=== PATIENT | male | born 1955 | race Caucasian/White ===

== ENCOUNTER 2017-06-06 19:53 | Inpatient (IN) | payer OTHER ==
[~2017-06-06] VITALS: Ht 188 cm; Wt 163.7 kg
[~2017-06-06 19:53] MED LIST: AMARYL2 MG PO; ASPIR 8181 MG PO; CARDIZEM CD240 MG PO; CARVEDILOL12.5 MG PO; DEMADEX20 MG PO; GEMFIBROZIL 60600 MG PO; GLUCOPHAGE1000 MG PO; HYDROCHLOROTH12.5 M2 PO; KEFLEX500 MG PO; KLOR-CON 1010 MEQ PO; LASIX 40 MG TAB40 M2 PO; LEVAQUIN 500 M500 M2 PO; LISINOPRIL10 MG PO; LISINOPRIL5 MG PO; MAGNEBIND 4001 EACH PO; METOLAZONE 5 MG5 MG PO; NEURONTIN 300300 M1 PO; NORCO 5-325 TA1 EACH PO; OMEPRAZOLE 20 M20 M1 PO; OXYCODONE HCL 55 MG PO; PRAVACHOL40 MG PO; PREDNISONE 10 M10 MG PO; SULINDAC 200MG200 M1 PO; TRADJENTA5 MG PO; TYLENOL325 MG PO; VENTOLIN HFA 1818 GM INH; VITAMINC500 PO; XARELTO20 MG PO
[2017-06-06 20:00] VITALS: BP 64/30
[2017-06-06 20:13] LABS: ABSOLUTE BASOPHILS 0.1 thou/uL (0.0-0.2); ABSOLUTE EOSINOPHILS 0.1 thou/uL (0.0-0.7); ABSOLUTE LYMPHOCYTES 2.3 thou/uL (0.8-5.3); ABSOLUTE MONOCYTES 1.2 thou/uL (0.0-1.2); ABSOLUTE NEUTROPHILS 9.3 thou/uL (1.6-8.1); BASOPHILS 0.9 %; HEMATOCRIT 45.1 % (42.0-52.0); HEMOGLOBIN 15.2 gm/dL (14.0-18.0); LYMPHOCYTES 17.7 %; MCH 29.9 pg (26.0-34.0); MCHC 33.8 g/dL (28.0-37.0); MCV 88.6 fL (80.0-100.0); MONOCYTES 9.1 %; NUCLEATED RBCS 0 /100WBC; PLATELET COUNT* 439 thou/uL (150-400); POLYS 71.3 %; RBC 5.09 mil/uL (4.50-6.00); RDW-CV 15.2 % (10.5-14.5)
[2017-06-06 20:29] LABS: INR 1.1; PROTIME 11.1 Seconds (9.20-11.50)
[2017-06-06 20:32] LABS: ANION GAP 11 mmol/L (7-16); BUN 43 mg/dL (7-18); CHLORIDE 87 mmol/L (98-107); CO2 26 mmol/L (21-32); CREATININE 2.1 mg/dL (0.6-1.3); GLUCOSE 298 mg/dL (70-99); POTASSIUM 3.9 mmol/L (3.5-5.1); SODIUM 124 mmol/L (136-145)
[2017-06-06 20:43] LABS: ALBUMIN 3.1 g/dL (3.4-5.0); ALKALINE PHOSPHATASE 138 U/L (46-116); NT-PRO BRAIN NAT PEPTIDE 725 pg/mL (<300); SGOT 29 U/L (15-37); SGPT 24 U/L (30-65); TOTAL BILIRUBIN 0.4 mg/dL (<0.1-1.0); TROPONIN-I LEVEL <0.06 ng/mL (<0.06)
[2017-06-06 23:30] VITALS: BP 96/57
[2017-06-06] MEDS ORDERED: TOPROL XL100 MG PO (23:31)
[2017-06-06] MEDS ORDERED: TRAMADOL 50 MG50 MG PO (23:31)
[2017-06-06] MEDS ORDERED: HYDROCHLOROTH12.5 M1 PO (23:31)
[2017-06-06] MEDS ORDERED: AMBIEN 5 MG TABL5 M1 PO (23:32)
[2017-06-06] MEDS ORDERED: ALLER-EASE180 MG PO (23:32)
[2017-06-06] MEDS ORDERED: VASOTEC20 MG PO (23:33)
[2017-06-06] MEDS ORDERED: MAGOX 400400 MG PO (23:34)
[2017-06-06] MEDS ORDERED: GLUCOPHAGE XR500 MG PO (23:34)
[2017-06-06] MEDS ORDERED: OSTEO BI-FLEX1 EAC1 PO (23:35)
[2017-06-07] VITALS (28 sets, daily range): BP systolic 60–143; BP diastolic 30–83
[2017-06-07] MEDS ORDERED: KLOR-CON 1010 MEQ PO (03:29)
[2017-06-07] MEDS ORDERED: DEMADEX20 MG PO (03:29)
[2017-06-07] MEDS ORDERED: ZAROXOLYN 5MG TA5 MG PO (03:30)
[2017-06-07] MEDS ORDERED: NEURONTIN 300300 M1 PO (03:31)
[2017-06-07] MEDS ORDERED: CELEBREX 200 M200 M1 PO (03:31)
[2017-06-07] MEDS ORDERED: CARDIZEM CD240 MG PO (03:33)
[2017-06-07] MEDS ORDERED: JARDIANCE10 MG PO (03:33)
[2017-06-07] MEDS ORDERED: OXYCODONE HCL 55 MG PO (03:34)
[2017-06-07 04:32] LABS: HEMATOCRIT 53.4 % (42.0-52.0); MCHC 32.3 g/dL (28.0-37.0); MCV 89.6 fL (80.0-100.0); MPV 8.7 fl. (7.2-11.1); NUCLEATED RBCS 0 /100WBC; RBC 5.97 mil/uL (4.50-6.00); RDW-CV 15.6 % (10.5-14.5)
[2017-06-07 04:47] LABS: ALBUMIN 2.6 g/dL (3.4-5.0); CALCIUM 7.7 mg/dL (8.5-10.1); CREATININE 2.4 mg/dL (0.6-1.3); MAGNESIUM 1.7 mg/dL (1.8-2.4); PHOSPHORUS* 5.5 mg/dL (2.5-4.9); POTASSIUM 4.7 mmol/L (3.5-5.1); TOTAL BILIRUBIN 0.4 mg/dL (<0.1-1.0)
[2017-06-07 05:21] LABS: HEMOGLOBIN 17.3 gm/dL (14.0-18.0); PLATELET COUNT* 517 thou/uL (150-400); WBC 45.1 thou/uL (4.0-11.0)
[2017-06-07 06:42] LABS: ABSOLUTE LYMPHOCYTES 0.9 thou/uL (0.8-5.3); ABSOLUTE MONOCYTES 1.4 thou/uL (0.0-1.2); ABSOLUTE NEUTROPHILS 42.8 thou/uL (1.6-8.1); METAMYELOCYTES 1 %; PLATELET ESTIMATE INCREASED
[2017-06-07 06:50] LABS: BE -9.5 mmol/L (-2 to +3); PCO2 39.6 mmHg (35.0-45.0)
[2017-06-07 06:51] LABS: pH 7.251 (7.340-7.450)
[2017-06-07 06:52] LABS: PO2 149.7 mmHg (75.0-100.0)
--- NOTE | 2017-06-07 10:13 | EKG ---
[place] [address] ELECTROCARDIOGRAM REPORT Name: VALORIE NAVA Room: [address] ADM IN .R.#: [id number] Admission: 06/06/17 Attend Phys: Maco Flor MD Discharge: Date of : 55 Report #: [id number] THIS REPORT FOR: //name// [facility] ED Test Date: 2017-06-06 Test Time: 19:56:34 Pat Name: VALORIE NAVA Department: Room: [address] Gender: M Reheater: 99 : 1955 Requested By: Sanjuana Herzog Order Number: [id number] Carlitos MD: Reagan Gaming Measurements Intervals [place] Rate: 99 P: [place]: QRS: 77 QRSD: 119 T: 137 QT: 394 QTc: 506 Interpretive Statements Atrial fibrillation Inferior infarct, old Prolonged QT interval Compared to ECG 01/25/2017 16:00:10 Prolonged QT interval now present Electronically Signed On 06-07-2017 10:13:37 DISPLAY ARTIST by Reagan Gaming [email or web address] <ELECTRONICALLY SIGNED> By: Reagan Gaming MD, [facility] 01/3 55 55 Reagan Gaming MD, FAC /EPI
--- NOTE | 2017-06-07 10:21 | EKG ---
[place] [address] ELECTROCARDIOGRAM REPORT Name: VALORIE NAVA Room: [address] ADM IN .R.#: [id number] Admission: 06/06/17 Attend Phys: Maco Flor MD Discharge: Date of : 55 Report #: [id number] THIS REPORT FOR: //name// [facility] ED Test Date: 2017-06-06 Test Time: 22:33:32 Pat Name: VALORIE NAVA Department: Room: [facility] Gender: M Geophysical Computer: [facility] : 1955 Requested By: Sanjuana Herzog Order Number: [id number] MD: Reagan Gaming Measurements Intervals [place] Rate: 142 P: [place]: QRS: 95 QRSD: 130 T: 268 QT: 316 QTc: 486 Interpretive Statements Atrial fibrillation with pvc's Nonspecific intraventricular conduction delay Nonspecific repol abnormality, diffuse leads Electronically Signed On 06-07-2017 10:20:58 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
[2017-06-07 10:36] LABS: INFLUENZA A ANTIGEN None Detected (None Detect); INFLUENZA B ANTIGEN None Detected (None Detect)
[2017-06-07 15:44] LABS: CALCIUM 7.3 mg/dL (8.5-10.1); CREATININE 2.1 mg/dL (0.6-1.3)
[2017-06-07 15:54] LABS: BE -3.8 mmol/L (-2 to +3); HCO3 23.2 mmol/L (22.0-26.0); PCO2 VENOUS 48.7 mmHg (41.0-51.0)
[2017-06-07 15:57] LABS: POTASSIUM 4.2 mmol/L (3.5-5.1)
[2017-06-07 19:52] LABS: URINE BILIRUBIN NEGATIVE (Negative); URINE BLOOD 1+ (Negative); URINE CLARITY CLEAR; URINE COLOR YELLOW; URINE GLUCOSE-RANDOM 3+ (Negative); URINE KETONES NEGATIVE (Negative); URINE LEUKOCYTES-REFLEX NEGATIVE (Negative); URINE NITRITE-REFLEX NEGATIVE (Negative); URINE PROTEIN NEGATIVE (Negative); URINE UROBILINOGEN 0.2 E.U./dl (0.2-1.0)
[2017-06-07 20:01] LABS: CASTS None Seen /LPF (None Seen); CRYSTALS None Seen /LPF (None Seen); MUCUS None Seen strn/LPF (None Seen); SQUAMOUS NONE SEEN /LPF (0-3)
[2017-06-07 20:03] LABS: BACTERIA-REFLEX 1-9 Few /HPF (None Seen); URINE RBC 3-10 Few /HPF (0-2); URINE WBC-REFLEX None Seen /HPF (0-5)
[2017-06-08] VITALS (25 sets, daily range): BP systolic 95–1128; BP diastolic 50–78
[2017-06-08 05:19] LABS: BASOPHILS 0.1 %; HEMATOCRIT 41.2 % (42.0-52.0); LYMPHOCYTES 3.6 %; MCH 29.1 pg (26.0-34.0); MCHC 32.7 g/dL (28.0-37.0); MCV 89.1 fL (80.0-100.0); MONOCYTES 3.5 %; MPV 8.2 fl. (7.2-11.1); NUCLEATED RBCS 0 /100WBC; POLYS 92.8 %; RBC 4.63 mil/uL (4.50-6.00); RDW-CV 15.4 % (10.5-14.5)
[2017-06-08 05:28] LABS: BE 2.5 mmol/L (-2 to +3); HCO3 27.3 mmol/L (22.0-26.0); PO2 84.7 mmHg (75.0-100.0); pH 7.421 (7.340-7.450)
[2017-06-08 05:30] LABS: PREALBUMIN 17.1 mg/dL (18.0-35.7)
[2017-06-08 05:58] LABS: ALBUMIN 2.3 g/dL (3.4-5.0); CALCIUM 7.7 mg/dL (8.5-10.1); CREATININE 1.4 mg/dL (0.6-1.3); MAGNESIUM 2.2 mg/dL (1.8-2.4); POTASSIUM 3.8 mmol/L (3.5-5.1); TOTAL BILIRUBIN 0.4 mg/dL (<0.1-1.0); TOTAL PROTEIN 6.4 g/dL (6.4-8.2)
[2017-06-08 06:00] LABS: ABSOLUTE LYMPHOCYTES 0.9 thou/uL (0.8-5.3); ABSOLUTE MONOCYTES 0.9 thou/uL (0.0-1.2); ABSOLUTE NEUTROPHILS 22.6 thou/uL (1.6-8.1); HEMOGLOBIN 13.5 gm/dL (14.0-18.0); WBC 24.3 thou/uL (4.0-11.0)
[2017-06-08 06:01] LABS: PLATELET COUNT* 330 thou/uL (150-400)
--- NOTE | 2017-06-08 11:02 | CON ---
[address] [address] CONSULTATION Name: VALORIE NAVA Room: [address] IN M.R.#: [id number] Admission: 06/06/17 Attend Phys: Maco Flor MD Discharge: Date of : 55 Report #: [id number] THIS REPORT FOR: //name// CC: Maco Flor FAM physician/PCP DATE OF SERVICE: 06/07/2017 INFECTIOUS DISEASE CONSULTATION ATTENDING PHYSICIAN: Maco Flor M.D. REASON FOR EVALUATION: Septic shock, left-sided pneumonitis. HISTORY OF PRESENT ILLNESS: Chart reviewed, patient examined. This is a 62-year-old male with diabetes mellitus with whom I am familiar with dating back to hospitalization on 01/2017. At that time, had bilateral lower extremity inflammatory eruptions with probably component of cellulitis. He does have lymphedema as well. He was doing fairly well. On the day of admission, he presented to his business education teacher's office, was found to have some hypotension. He was discharged. As he got home, he became weak and lightheaded. When he woke up, he was feeling worse with difficulty nausea, dry heaving. He was dyspneic as well. Of note, poorly had a sinus infection 2 weeks ago per son, which is not atypical for him. He has not had abdominal pain. It is unclear whether he has had fevers. On evaluation, he was critically ill, emergently intubated, now on ventilatory support. Blood cultures in progress, thus far sterile. Chest CT was done and it showed a severe left-sided back pain, rule out dissection. He was found to have consolidative process in the base of the left lung. It is not particularly evident on chest x-ray. He has had some low-grade fevers. Started empirically on antimicrobials including piperacillin, tazobactam as well as vancomycin and Levaquin. ALLERGIES: TYLENOL. CURRENT MEDICATIONS: Include levofloxacin, vancomycin, methylprednisolone, ipratropium and albuterol inhaler. PAST MEDICAL HISTORY: In addition to diabetes mellitus type 2, has high cholesterol, has known vasculopathy, coronary artery disease with aortocoronary bypass grafting, hypertension. SOCIAL HISTORY: He smokes a pack a day, 44 pack years. No illicit drug use. Occasional ethanol. FAMILY HISTORY: [place] [address] CONSULTATION Name: VALORIE NAVA Room: [address]#: [id number] Admission: 06/06/17 Attend Phys: Maco Flor MD Discharge: Date of : 55 Report #: [id number] REVIEW OF SYSTEMS: Not obtainable. PHYSICAL EXAMINATION: GENERAL: Appears somewhat chronically ill. He is supine, maintained on the vent, sedated. VITAL SIGNS: Temperature 100.6, pulse 135, respirations 22, blood pressures 93/61. SKIN: Warm, dry, no rashes. HEENT: Unremarkable. NECK: Supple. LUNGS: Diminished breath sounds, had some crackles at the bases. HEART: Regular, tachycardic. I cannot appreciate murmur, although I cannot exclude one necessarily given his tachycardia. ABDOMEN: There are no evident peritoneal signs, seems to be soft. GENITOURINARY AND RECTAL: Deferred. LABORATORY DATA: Blood cultures sterile thus far. Chest x-ray, though it shows clear lungs, ____ was done; however, showed no evidence of aortic dissection, left lower lobe consolidative process. Does have some changes on his lungs that appear to be chronic. There is question of cirrhosis, unchanged several months ago. Lactic acid 5.8, it is actually up from admission 4.3. Troponin level of 1.29. CBC: White count of 45.1, it is up from 13.0. Hemoglobin 17.3, hematocrit 53.4, platelets of 517. Electrolytes: Sodium 126, potassium 4.7, chloride 91, bicarbonate is 22. BUN and creatinine 43 and 2.4. Glucose of 494. AST of 60, ALT of 39. Albumin of 2.6. Total protein of 7.0. Estimated GFR of 28. ASSESSMENT AND PLAN: Septic shock, certainly appears to have pneumonia as well, I cannot really exclude a second infection. He is critically ill. At some point, I think we need to evaluate his abdomen given the markedly elevated white count with certainly raised suspicion perhaps of an ischemic episode. We will continue the piperacillin and tazobactam, go and check influenza and empirically start Tamiflu. We will await results, ____ urinary antigens, MRSA, PCR as well. <ELECTRONICALLY SIGNED> By: Ronan Tipton MD 06/08/17 1102 1010 55Josamantha Tipton MD /nt
[2017-06-08 22:42] LABS: BE 1.7 mmol/L (-2 to +3); PCO2 39.6 mmHg (35.0-45.0); PO2 94.5 mmHg (75.0-100.0); pH 7.435 (7.340-7.450)
[2017-06-09] VITALS (9 sets, daily range): BP systolic 116–147; BP diastolic 57–78
[2017-06-09 03:21] LABS: HEMATOCRIT 35.5 % (42.0-52.0); HEMOGLOBIN 11.7 gm/dL (14.0-18.0); MCH 29.6 pg (26.0-34.0); MCHC 33.1 g/dL (28.0-37.0); MCV 89.5 fL (80.0-100.0); MPV 7.9 fl. (7.2-11.1); RBC 3.97 mil/uL (4.50-6.00); RDW-CV 15.7 % (10.5-14.5); WBC 18.8 thou/uL (4.0-11.0)
[2017-06-09 03:31] LABS: ALBUMIN 2.4 g/dL (3.4-5.0); CALCIUM 7.7 mg/dL (8.5-10.1); CREATININE 1.3 mg/dL (0.6-1.3); MAGNESIUM 2.2 mg/dL (1.8-2.4); POTASSIUM 3.5 mmol/L (3.5-5.1); TOTAL BILIRUBIN 0.3 mg/dL (<0.1-1.0); TOTAL PROTEIN 6.3 g/dL (6.4-8.2)
--- NOTE | 2017-06-09 09:31 | CON ---
[facility] [address] [place] [address] CONSULTATION Name: VALORIE NAVA Room: [address] IN M.R.#: [id number] Admission: 06/06/17 Attend Phys: Maco Flor MD Discharge: Date of : 55 Report #: [id number] THIS REPORT FOR: //name// CC: Maco Flor [facility] physician/PCP REASON FOR THE CONSULT: Acute respiratory failure. HISTORY OF PRESENT ILLNESS: The patient is a 62-year-old male patient who is a smoker and carries a diagnosis of COPD, who was intubated at the time of my evaluation, did not participate in the history. The patient had previous history of CABG. Yesterday, he saw his surveying crew rodman and everything was fine. When he went home, he started having dizziness, weakness and fatigue and eventually the family called the EMS. Initially, he had no shortness of breath, but upon arrival to the ER, he was in respiratory distress, he was extremely hypotensive, he was intubated and had the central line placed, start on vasopressors. Actually at the time of my evaluation, he was on dopamine and Levophed. He was sedated by Versed too and he was getting IV fluids. His blood pressure was running around 110 systolic. He was found to have pneumonia. His family members at the bedside did not notice any symptoms of sputum production, cough or shortness of breath prior to acute deterioration, although he had some sinus symptoms in the last few days. HOME MEDICATIONS: He is on tramadol, hydrochlorothiazide, Ambien, metformin, furosemide, metolazone, gabapentin, diazepam, aspirin, gemfibrozil, pravastatin. He was on Xarelto and Tylenol. PAST MEDICAL HISTORY: Coronary artery disease status post CABG, hyperlipidemia, diabetes mellitus, COPD, smoker, hypertension. PAST SURGICAL HISTORY: Include bypass surgery. FAMILY HISTORY: Positive for heart disease. SOCIAL HISTORY: He continues to smoke 1 pack of cigarettes per day for the last 44 years. Apparently does not drink alcohol excessively. REVIEW OF SYSTEMS: The patient is intubated and sedated. Review of systems is unobtainable at this point. ALLERGIES: TYLENOL NO. 3. PHYSICAL EXAMINATION: VITAL SIGNS: On examination, he is on 2 vasopressors, blood pressure 106/66, O2 saturation on the monitor 99%, he was in 50% when I saw him, pulse rate around 111, he was afebrile with temperature 38.1. [place] [address] CONSULTATION Name: VALORIE NAVA Room: [address]#: [id number] Admission: 06/06/17 Attend Phys: Maco Flor MD Discharge: Date of : 55 Report #: [id number] GENERAL: Overweight gentleman, sedated on the vent, although he opened his eyes when stimulated, overall looking comfortable. HEENT: Head: Normocephalic, atraumatic. Pupils are equal, reactive to light. Extraocular muscle movements are intact. External ear looks healthy and normal. Nasal passage is patent. Oral cavity: Moist mucous membrane. He has ET tube and NG tube in place. NECK: Supple. No palpable lymph node. No palpable thyroid. Trachea is central. CHEST: Diminished air movement bilaterally. No definite wheezes. Some crackles at the bases bilaterally. No deformities of the chest on inspection. No tenderness. HEART: S1, S2 in AFib. ABDOMEN: Benign, soft, lax, nontender, obese. LOWER EXTREMITY: Trace edema noted. No calf tenderness. MUSCULOSKELETAL: No deformities. No contractures, normal inspection. LYMPHATICS: No palpable lymph nodes. PSYCHIATRIC: Mood and affect could not be evaluated. NEUROLOGIC: Although he is sedated, but when stimulated, movements of the 4 extremities were noted. DIAGNOSTIC DATA: He had multiple chest x-rays during this hospitalization showing left-sided infiltrates. Tubes in good position. He had a CT of the abdomen, pelvis and chest showed left lower lobe consolidation. His white blood count today is 45,000 with hemoglobin 17.3 and platelets of 517. ABGs 7.25/39/149. INR of 28. His creatinine is 2.4 today. IMPRESSION: 1. Acute hypoxic respiratory failure. 2. Chronic obstructive pulmonary disease. 3. Pneumonia. 4. Septic shock. 5. Acute renal failure. 6. Encephalopathy. 7. Lactic acidosis. 8. Abnormal liver test. 9. Atrial fibrillation with rapid ventricular response. PLAN: At this point, the patient requires maximum support. He is on 2 vasopressors. We will try to wean his vasopressors down. He is on IV fluids. We need to monitor his urine output. Antibiotic currently per ID at this point. He will be on scheduled nebulization treatment. I am going to add steroids for him. We will do a repeat chest x-ray and ABG in the morning. When he is more stable hemodynamically, we will start considering the weaning trials. [address] [address] CONSULTATION Name: VALORIE NAVA Cruzito Room: [address] IN .R.#: [id number] Admission: 06/06/17 Attend Phys: Maco Flor MD Discharge: Date of : 55 Report #: [id number] Thank you for the consult. We will follow along with you. Discussed with the patient's nurse, RT and the patient's family at the bedside. <ELECTRONICALLY SIGNED> By: Lydia Copeland MD 06/09/17 0931 0924 [id number] Copeland MD /jennifer
--- NOTE | 2017-06-09 12:41 | CON ---
[facility] [place] [address] [place] [address] CONSULTATION Name: VALORIE NAVA Room: [address] IN M.R.#: [id number] Admission: 06/06/17 Attend Phys: Maco Flor MD Discharge: Date of : 55 Report #: [id number] THIS REPORT FOR: //name// CC: Maco Flor [facility] physician/PCP Wojciech Manriquez DO DATE OF SERVICE: 06/07/2017 TYPE OF REPORT: Cardiology consultation. PRIMARY CARE PHYSICIAN: Wojciech Manriquez M.D. HISTORY OF PRESENT ILLNESS: The patient is a 62-year-old white male who I was asked to see in the hospital today after he developed shortness of breath. The patient has a long history of coronary artery disease. He actually presented in 2008 with an acute coronary syndrome. ECG showed evidence of STEMI. He was seen by Dr. Constantine Cook at that time. Urgent heart catheterization from the right radial artery showing ejection fraction 50% with an 80% narrowing of the LAD, 70% stenosis of the circumflex and chronic occlusion of the right coronary artery. Distal LAD appeared to be chronically occluded and the wire was not able to be placed. He was felt to have severe multivessel coronary artery disease, is recommended he undergo coronary bypass surgery. He then presented in 2015 after a syncopal spell. Unfortunately, he continued to smoke. In the past, he developed bradycardia on a beta-zunilda. He is morbidly obese, standing 6 feet 1 and weighing 300 pounds. He goes to the wound clinic because of chronic edema and has to wrap his feet at home. He has a history of permanent atrial fibrillation, has been chronically anticoagulated. Since I saw him in the clinic in January, he actually just saw my nurse practitioner yesterday. The patient when seen yesterday actually had no significant complaints. The rate of atrial fibrillation was controlled with diltiazem. Echocardiogram this summer showed ejection fraction of 50%. He denies significant chest pain, although he continues to smoke. He does have chronic edema. The patient then was at home yesterday and apparently complained of some back pain. Paramedics were called and he was brought to the Emergency Room here. His blood pressure is noted to be low and he did not feel well. He felt lightheaded and drowsy. On his way to the Emergency Room, he complained of increasing shortness of breath. In the Emergency Room, he eventually had to be intubated. He was placed on IV pressors for low blood pressure. He was admitted to a monitored bed and I was asked to see him for further evaluation and treatment. PAST MEDICAL HISTORY: Otherwise is significant for previous appendectomy and knee arthroscopy. He has a history of hypertension, diabetes, hyperlipidemia [place] [address] CONSULTATION Name: VALORIE NAVA Room: [address] IN [facility]#: [id number] Admission: 06/06/17 Attend Phys: Maco Flor MD Discharge: Date of : 55 Report #: [id number] MEDICATIONS: Consists of Cardizem-CD, Neurontin, gemfibrozil, lisinopril, metformin, Zaroxolyn every other day, omeprazole, oxycodone, potassium, pravastatin, Xarelto and torsemide. ALLERGIES: He has intolerance to CODEINE. FAMILY HISTORY: His father of heart attack. SOCIAL HISTORY: He is . He does live in [place]. 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 No other works. He continues to smoke a pack of cigarettes a day. Occasionally drinks alcohol. REVIEW OF SYSTEMS: There has been no history of stroke, peptic ulcer disease, liver disease, cancer or psychiatric illness. PHYSICAL EXAMINATION: GENERAL: Revealed a large middle-aged male lying in bed. He was on the ventilator. VITAL SIGNS: His blood pressure 100/60, his pulse 120 and irregular and he is on the ventilator. HEENT: Mucous members moist. He is anicteric. CHEST: Clear to auscultation. CARDIAC: Irregular tachycardia. ABDOMEN: Obese. EXTREMITIES: Had trace edema. Dorsalis pedis pulse cannot be palpated. SKIN: Cool and dry. NEUROLOGICAL: He would not withdraw from painful stimuli. RADIOLOGICAL DATA: His ECG on admission last night showed atrial fibrillation with increased ventricular response rate and a left bundle-branch block. Workup in the Emergency Room yesterday, he had a portable chest x-ray that showed cardiomegaly and vascular congestion. CT scan of the chest using a PE protocol with contrast showed nodular liver, small gallstone. No aortic dissection. Left lower lobe pneumonia. LABORATORY DATA: His sodium 126, potassium 4.7, BUN 43, creatinine 2.4 and glucose 494. Liver function studies are normal. Troponin on admission yesterday 0.06 and today it is 1.29. His white blood cell count is 45,000 and hemoglobin 17.3. IMPRESSION AND RECOMMENDATIONS: 1. Sepsis syndrome. The patient currently on pressors. 2. Pneumonia. The patient on antibiotics. 3. Atrial fibrillation. Rate noted to be elevated since the patient is on IV Levophed. I would give digoxin for rate control. The patient has been anticoagulated [place] [address] CONSULTATION Name: VALORIE NAVA Room: [address] IN ..#: [id number] Admission: 06/06/17 Attend Phys: Maco Flor MD Discharge: Date of : 55 Report #: [id number] 4. Coronary artery disease. Previous bypass surgery. 5. Hypertension. I would hold his calcium zunilda and angiotensin-converting enzyme inhibitor at this time. 6. Diabetes. 7. Morbid obesity. 8. Sleep apnea. 9. Acute kidney injury. 10. Venous stasis. 11. Tobacco abuse. <ELECTRONICALLY SIGNED> By: Reagan Gaming MD, FACC 06/09/17 1241 1305 [id number] Gaming MD, FACC /nt
[2017-06-10] VITALS: BP 127/65
[2017-06-10 03:45] VITALS: BP 147/78
[2017-06-10 05:05] LABS: HEMATOCRIT 36.1 % (42.0-52.0); HEMOGLOBIN 12.1 gm/dL (14.0-18.0); MCH 29.5 pg (26.0-34.0); MCHC 33.4 g/dL (28.0-37.0); MCV 88.4 fL (80.0-100.0); MPV 8.3 fl. (7.2-11.1); RBC 4.08 mil/uL (4.50-6.00); RDW-CV 15.2 % (10.5-14.5); WBC 11.4 thou/uL (4.0-11.0)
[2017-06-10 05:16] LABS: CALCIUM 8.1 mg/dL (8.5-10.1); CREATININE 1.6 mg/dL (0.6-1.3); MAGNESIUM 2.2 mg/dL (1.8-2.4); POTASSIUM 4.1 mmol/L (3.5-5.1)
[2017-06-10 12:57] LABS: CALCIUM 7.7 mg/dL (8.5-10.1); CREATININE 1.4 mg/dL (0.6-1.3); POTASSIUM 3.8 mmol/L (3.5-5.1)
[2017-06-10 12:58] LABS: ALBUMIN 2.3 g/dL (3.4-5.0)
[2017-06-10 13:40] LABS: PHOSPHORUS* 4.3 mg/dL (2.5-4.9)
[2017-06-10 20:05] VITALS: BP 141/82
[2017-06-10 23:37] VITALS: BP 142/65
[2017-06-11 04:00] VITALS: BP 150/89
[2017-06-11 04:46] LABS: ALBUMIN 2.6 g/dL (3.4-5.0); CALCIUM 8.2 mg/dL (8.5-10.1); CREATININE 1.4 mg/dL (0.6-1.3); POTASSIUM 4.1 mmol/L (3.5-5.1); TOTAL BILIRUBIN 0.4 mg/dL (<0.1-1.0); TOTAL PROTEIN 6.5 g/dL (6.4-8.2)
[2017-06-11 04:57] LABS: HEMATOCRIT 35.8 % (42.0-52.0); MCH 29.6 pg (26.0-34.0); MCHC 33.5 g/dL (28.0-37.0); MCV 88.5 fL (80.0-100.0); MPV 8.4 fl. (7.2-11.1); NUCLEATED RBCS 0 /100WBC; PLATELET COUNT* 181 thou/uL (150-400); RBC 4.05 mil/uL (4.50-6.00); RDW-CV 15.5 % (10.5-14.5); WBC 8.7 thou/uL (4.0-11.0)
[2017-06-11 05:15] LABS: PREALBUMIN 22.4 mg/dL (18.0-35.7)
[2017-06-11 06:16] LABS: ABSOLUTE LYMPHOCYTES 0.3 thou/uL (0.8-5.3); ABSOLUTE MONOCYTES 0.8 thou/uL (0.0-1.2); ABSOLUTE NEUTROPHILS 7.7 thou/uL (1.6-8.1); PLATELET ESTIMATE ADEQUATE
[2017-06-11 08:34] VITALS: BP 150/89
[2017-06-11 10:13] LABS: GLYCOHEMOGLOBIN (HGB A1C) 9.9 % (4.8-5.6)
[2017-06-11 11:40] VITALS: BP 123/66
[2017-06-11] MEDS ORDERED: DIGOXIN250 MCG PO (13:45)
[2017-06-11] MEDS ORDERED: PREDNISONE 10 M10 MG PO (13:47)
[2017-06-11 13:49] VITALS: BP 150/89
[2017-06-11] MEDS ORDERED: NOVOLOG100 UNIT/1 SUBQ (14:04)
[2017-06-11] MEDS ORDERED: LEVAQUIN 500 M500 M2 PO (14:11)
--- NOTE | 2017-06-12 15:02 | CON ---
[address] [address] CONSULTATION Name: VALORIE NAVA Room: [address] IN .R.#: [id number] Admission: 06/06/17 Attend Phys: Maco Flor MD Discharge: 06/11/17 Date of : 55 Report #: [id number] THIS REPORT FOR: //name// CC: Maco Flor FAM physician/PCP DATE OF SERVICE: 06/07/2017 NEPHROLOGY CONSULTATION CONSULTING PHYSICIAN: Maco Flor MD REASON FOR CONSULTATION: Acute kidney injury. HISTORY OF PRESENT ILLNESS: A 62-year-old gentleman who was admitted with multiorgan failure and septic shock. Blood pressures were extremely low down at the 60s systolic. He had a creatinine of 2.1 on admission, it was 1.1 back in April and is up at 2.4 today. He is making good urine. He is requiring vasopressors. He was on Levophed and that had to be gradually increased and was eventually maxed out and then he was started on Jerson-Synephrine as well. He is currently intubated. He has a Andrade catheter in and has had very good urine output. REVIEW OF SYSTEMS: Constitutional, psych, heme, eyes, ENT, respiratory, cardiac, GI, , endocrine, all negative except as documented above and as best as can be ascertained. PAST MEDICAL HISTORY: Coronary artery disease, history of 4-vessel bypass, hypertension, diabetes and dyslipidemia. SOCIAL HISTORY: Positive for tobacco. FAMILY HISTORY: Not pertinent in this 62-year-old gentleman. CURRENT MEDICATIONS: Reviewed. PHYSICAL EXAMINATION: VITAL SIGNS: Blood pressure is 119/78, pulse 119, respirations 18 and temperature 36. GENERAL: Intubated, sedated. HEENT: Eyes closed. Ears externally normal. CARDIOVASCULAR: Tachycardic. LUNGS: Diminished breath sounds. ABDOMEN: Soft. LYMPHATICS: No substantial pitting edema. NEUROLOGIC: [place]ubated [place] [address] CONSULTATION Name: VALORIE NAVA Room: [address]#: [id number] Admission: 06/06/17 Attend Phys: Maco Flor MD Discharge: 06/11/17 Date of : 55 Report #: [id number] GENITOURINARY: Andrade in place. LABORATORY DATA: White cell count 45, hemoglobin 17.3, platelets 517. Sodium 126, potassium 4.7, chloride 91, bicarbonate 22, BUN 43, creatinine 2.4, glucose 494, calcium 7.7, phosphorus 5.5, magnesium 1.7, albumin 2.6. ASSESSMENT: 1. Acute kidney injury in the setting of septic shock with severely low blood pressures as well as in the setting of hydrochlorothiazide, torsemide and metolazone, Celebrex, Jardiance, sulindac. On June 06, creatinine 2.1; on 04/26/2017 creatinine 1.1. He also did receive dye on June [address] scan. He had imaging of his kidneys on a CT scan and the kidneys were okay and the renal vessels were patent. 2. Septic shock. 3. Hyponatremia. 4. Hypomagnesemia. 5. Hypoalbuminemia. PLAN: He has very good urine output. Repeat lab has been ordered. We will check UA with vancomycin and monitor levels closely. All other nephrotoxic medications have been stopped. Hyponatremia may in part be due to his hyperglycemia and in the setting of septic shock, would recommend tight blood sugar control. We will replace electrolytes as needed. Thank you for requesting my opinion in the care and management of this patient. The patient's was updated. <ELECTRONICALLY SIGNED> By: Lloyd Hammer MD 06/12/17 1502 1547 [id number] Pizarro MD /nt
== END 2017-06-11 15:10 | disposition home health service (06) | DRG 871 ==
LOC: M.ERS 19:53 → M.ICU 22:27 → M.ERS 22:27 → M.TBA-ER 22:27 → M.ICU 22:59 → M.3W 06-09 15:27
PROVIDERS: Emergency Medicine; Internal Medicine; Internal Medicine Nephrology; Internal Medicine Pulmonary Disease; Specialist; ADMIT Internal Medicine
PROC: 0BH17EZ Insertion of Endotracheal Airway into Trachea, Via Natural or Artificial Opening (ICD-10-PCS; principal; 2017-06-06)
PROC: 5A1945Z Respiratory Ventilation, 24-96 Consecutive Hours (ICD-10-PCS; principal; 2017-06-06)
PROC: 05HA33Z Insertion of Infusion Device into Left Brachial Vein, Percutaneous Approach (ICD-10-PCS; 2017-06-06)
DX: A41.9 Sepsis, unspecified organism (principal); R65.21 Severe sepsis with septic shock; N17.0 Acute kidney failure with tubular necrosis; J15.6 Pneumonia due to other Gram-negative bacteria; I21.4 Non-ST elevation (NSTEMI) myocardial infarction; E11.00 Type 2 diabetes mellitus with hyperosmolarity without nonketotic hyperglycemic-hyperosmolar coma (NKHHC); J96.01 Acute respiratory failure with hypoxia; K72.00 Acute and subacute hepatic failure without coma; J96.02 Acute respiratory failure with hypercapnia; G92 Toxic encephalopathy; E87.1 Hypo-osmolality and hyponatremia; N17.9 Acute kidney failure, unspecified; Z68.42 Body mass index [BMI] 45.0-49.9, adult; Z79.4 Long term (current) use of insulin; I48.91 Unspecified atrial fibrillation; I50.9 Heart failure, unspecified; E78.5 Hyperlipidemia, unspecified; E11.9 Type 2 diabetes mellitus without complications; F17.210 Nicotine dependence, cigarettes, uncomplicated; I25.10 Atherosclerotic heart disease of native coronary artery without angina pectoris; E78.00 Pure hypercholesterolemia, unspecified; J44.9 Chronic obstructive pulmonary disease, unspecified; E66.01 Morbid (severe) obesity due to excess calories; I87.8 Other specified disorders of veins; I11.0 Hypertensive heart disease with heart failure; E83.42 Hypomagnesemia; E88.09 Other disorders of plasma-protein metabolism, not elsewhere classified; I95.9 Hypotension, unspecified; J32.9 Chronic sinusitis, unspecified; E11.65 Type 2 diabetes mellitus with hyperglycemia; G47.33 Obstructive sleep apnea (adult) (pediatric); Z91.19 Patient's noncompliance with other medical treatment and regimen; Z28.21 Immunization not carried out because of patient refusal; Z90.49 Acquired absence of other specified parts of digestive tract; I25.2 Old myocardial infarction; Z95.1 Presence of aortocoronary bypass graft; Z98.49 Cataract extraction status, unspecified eye; Z88.8 Allergy status to other drugs, medicaments and biological substances; Z82.49 Family history of ischemic heart disease and other diseases of the circulatory system; Z88.6 Allergy status to analgesic agent; Z79.899 Other long term (current) drug therapy

== ENCOUNTER → 2019-09-22 | Outpatient (CLI) | payer MEDICARE ==
[~2019-09-22] MED LIST changes: +ALLER-EASE180 MG PO; +AMBIEN 5 MG TABL5 M1 PO; +CELEBREX 200 M200 M1 PO; +DIGOXIN250 MCG PO; +GLUCOPHAGE XR500 MG PO; +HYDROCHLOROTH12.5 M1 PO; +JARDIANCE10 MG PO; +MAGOX 400400 MG PO; +NOVOLOG100 UNIT/1 SUBQ; +OSTEO BI-FLEX1 EAC1 PO; +TOPROL XL100 MG PO; +TRAMADOL 50 MG50 MG PO; +VASOTEC20 MG PO; +ZAROXOLYN 5MG TA5 MG PO
--- NOTE | 2019-09-22 15:42 | 2DMMODE ---
[place] [address] 2 D/M-MODE ECHOCARDIOGRAM Name: NAVAVALORIE Cruzito Room: [facility]#: [id number] Admission: 09/22/19 Attend Phys: Reagan Gaming MD Discharge: Date of : 55 Date of Service: 09/22/19 1540 Report #: [id number] THIS REPORT FOR: cc: Wojciech Manriquez Steve T. DO Liston, Michael J. MD [facility] ~ APPROVED REPORT Study performed: 09/22/2019 11:48:39 EXAM: Comprehensive 2D, Doppler, and color-flow Echocardiogram Patient Location: Out-Patient BSA: 2.51 HR: 96 bpm BP: 148/92 mmHg Other Information Study Quality: Fair Indications Congestive Heart Failure 2D Dimensions IVSd: 11.60 (7-11mm) LVOT Diam: 21.68 (18-24mm) LVDd: 52.82 mm PWd: 11.33 (7-11mm) Ascending Ao: 33.75 (22-36mm) LVDs: 34.93 (25-40mm) Aortic Root: 27.25 mm Volumes Left Atrial Volume (Systole) LA ESV Index: 21.00 mL/m2 Aortic Valve AoV Peak Jj.: 1.08 m/s AO Peak Gr.: 4.68 mmHg LVOT Max P.02 mmHg AO Mean Gr.: 2.81 mmHg LVOT Mean P.95 mmHg LVOT Max V: 0.71 m/s AO V2 VTI: 16.76 cm LVOT Mean V: 0.45 m/s CHIDI (VTI): 2.75 cm2 LVOT V1 VTI: 12.49 cm Mitral Valve MV Decel. Time: 157.47 [place] [address] 2 D/M-MODE ECHOCARDIOGRAM Name: VALORIE NAVA Room: [facility]#: [id number] Admission: 09/22/19 Attend Phys: Reagan Gaming MD Discharge: Date of : 55 Date of Service: 09/22/19 1540 Report #: [id number] MV E Max Jj.: 0.86 m/s MV PHT: 45.67 ms MVA (PHT): 4.82 cm2 TDI E/Lateral E': 6.62 E/Medial E': 9.56 Medial E' Jj.: 0.09 m/s Lateral E' Jj.: 0.13 m/s Pulmonary Valve PV Peak Jj.: 0.87 m/s PV Peak Gr.: 3.05 mmHg Left Ventricle The left ventricle is normal size. Poor endocardial definition. Cannot rule out underlying wall motion abnormality. There is normal left ventricular wall thickness. Left ventricular systolic function is mildly decreased. LVEF is 40-45%. This study is not technically sufficient to allow evaluation of the LV diastolic function due to atrial fibrillation. Right Ventricle The right ventricle is normal size. The right ventricular systolic function is normal. Atria The left atrium size is normal. The right atrium size is normal. Aortic Valve The aortic valve is normal in structure. No aortic regurgitation is present. There is no aortic valvular stenosis. Mitral Valve The mitral valve is normal in structure. There is no mitral valve regurgitation noted. No evidence of mitral valve stenosis. Tricuspid Valve Tricuspid valve is not well visualized. There is no tricuspid valve regurgitation noted. Pulmonic Valve Pulmonic valve is notl visualized. There is no pulmonic valvular regurgitation. Great Vessels The aortic root is normal in size. [place] [address] 2 D/M-MODE ECHOCARDIOGRAM Name: VALORIE NAVA Room: [facility]#: [id number] Admission: 09/22/19 Attend Phys: Reagan Gaming MD Discharge: Date of : 55 Date of Service: 09/22/19 1540 Report #: [id number] visualized. Pericardium There is no pericardial effusion. <Conclusion> The left ventricle is normal size. There is normal left ventricular wall thickness. Left ventricular systolic function is mildly decreased. LVEF is 40-45%. This study is not technically sufficient to allow evaluation of the LV diastolic function due to atrial fibrillation. Poor endocardial definition. Cannot rule out underlying wall motion abnormality. Consider repeat study with contrast if clinically indicated. <ELECTRONICALLY SIGNED> By: Nirmal Vazquez MD, FACC 09/22/19 1540 1540 1540 Nirmal Vazquez MD, FACC /INF
== END ==
LOC: M.CRD 11:30
DX: R60.9 Edema, unspecified (principal)

== ENCOUNTER 2020-11-25 13:32 | Inpatient (IN) | payer MEDICARE ==
[~2020-11-25] VITALS: Ht 185.4 cm; Wt 134.1 kg
--- NOTE | ~2020-11-25 | PROC ---
[address] [address] PROCEDURE REPORT Name: VALORIE NAVA Room: [address] IN M.R.#: [id number] Admission: 11/25/20 Attend Phys: Cruzito Haney Discharge: Date of : 55 Report #: [id number] THIS REPORT FOR: cc: Wojciech Manriquez Steve T. DO [facility],Medical Records Staff ~ For GI report, please see the Provation report in Perceptive 7 content. By: 1319Medical Records Staff SUNDAR /LISA
--- NOTE | ~2020-11-25 | PROC ---
[address] [address] PROCEDURE REPORT Name: VALORIE NAVA Room: [address] IN M.R.#: [id number] Admission: 11/25/20 Attend Phys: Cruzito Haney Discharge: Date of : 55 Report #: [id number] THIS REPORT FOR: cc: Wojciech Manriquez Steve T. DO [facility],Medical Records Staff ~ For GI report, please see the Provation report in Perceptive 7 content. By: 1316Medical Records Staff SUNDAR /LISA
[2020-11-25 13:35] VITALS: BP 97/35
[2020-11-25 14:33] LABS: ABSOLUTE BASOPHILS 0.1 thou/uL (0.0-0.2); ABSOLUTE EOSINOPHILS 0.1 thou/uL (0.0-0.7); ABSOLUTE LYMPHOCYTES 0.7 thou/uL (0.8-5.3); ABSOLUTE MONOCYTES 0.8 thou/uL (0.0-1.2); EOSINOPHILS 1.9 %; LYMPHOCYTES 12.4 %; MCH 17.3 pg (26.0-34.0); MCHC 29.4 g/dL (28.0-37.0); MCV 58.9 fL (80.0-100.0); MONOCYTES 14.7 %; MPV 7.8 fl. (7.2-11.1); NUCLEATED RBCS 1 /100WBC; PLATELET COUNT* 388 thou/uL (150-400); RBC 3.12 mil/uL (4.50-6.00); RDW-CV 20.6 % (10.5-14.5); WBC 5.7 thou/uL (4.0-11.0)
[2020-11-25 14:40] LABS: HEMOGLOBIN 5.4 gm/dL (14.0-18.0)
[2020-11-25 14:41] LABS: HEMATOCRIT 18.4 % (42.0-52.0)
[2020-11-25 14:49] LABS: CALCIUM 8.2 mg/dL (8.5-10.1); CREATININE 1.2 mg/dL (0.6-1.3)
[2020-11-25 14:58] LABS: ALBUMIN 2.5 g/dL (3.4-5.0); TOTAL BILIRUBIN 0.6 mg/dL (<0.1-1.0); TOTAL PROTEIN 8.1 g/dL (6.4-8.2)
[2020-11-25 15:20] LABS: PLATELET ESTIMATE ADEQUATE
[2020-11-25 15:21] LABS: ANISOCYTOSIS 2+; HYPOCHROMASIA 2+; MICROCYTES 2+
--- NOTE | 2020-11-25 15:50 | EKG ---
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 : 1955 Requested By: Nicolás Mckee Order Number: [id number] MD: Anrdes Menjivar Measurements Intervals [place] Rate: 89 P: CA: QRS: 71 QRSD: 131 T: QT: 394 QTc: 480 Interpretive Statements Atrial fibrillation Nonspecific intraventricular conduction delay Inferior infarct, old possible Baseline wander in lead(s) V3 Compared to ECG 06/06/2017 22:33:32 Myocardial infarct finding now possible Early repolarization no longer present Electronically Signed On 11-25-2020 15:50:10 CDT by Andres Menjivar [email or web address] <ELECTRONICALLY SIGNED> By: Andres Menjivar MD, [facility] 11/25/20 1550 1408 1408 Andres Menjivar MD, FAC /EPI
[2020-11-25 20:20] VITALS: BP 107/60
[2020-11-25 20:23] VITALS: BP 104/53
[2020-11-25 21:39] VITALS: BP 94/49; BP 95/45; BP 95/63; BP 99/52
[2020-11-26] VITALS (7 sets, daily range): BP systolic 81–119; BP diastolic 38–62
[2020-11-26 05:45] LABS: HEMATOCRIT 20.2 % (42.0-52.0); MCH 19.1 pg (26.0-34.0); MCHC 30.8 g/dL (28.0-37.0); MCV 61.9 fL (80.0-100.0); RBC 3.26 mil/uL (4.50-6.00); RDW-CV 25.3 % (10.5-14.5); WBC 5.7 thou/uL (4.0-11.0)
[2020-11-26 06:08] LABS: ALBUMIN 2.3 g/dL (3.4-5.0); ALKALINE PHOSPHATASE 147 U/L (46-116); ANION GAP 8 mmol/L (7-16); BUN 42 mg/dL (7-18); CALCIUM 7.7 mg/dL (8.5-10.1); CHLORIDE 95 mmol/L (98-107); CO2 21 mmol/L (21-32); CREATININE 1.1 mg/dL (0.6-1.3); GLUCOSE 159 mg/dL (70-99); POTASSIUM 5.3 mmol/L (3.5-5.1); SGOT 43 U/L (15-37); SGPT 30 U/L (30-65); SODIUM 124 mmol/L (136-145); TOTAL BILIRUBIN 0.9 mg/dL (<0.1-1.0); TOTAL PROTEIN 7.4 g/dL (6.4-8.2)
[2020-11-26 06:14] LABS: CHOLESTEROL 81 mg/dL (<200); HDL CHOLESTEROL 23 mg/dL (>40); LDL CHOLESTEROL 50 mg/dL (<100); TC:HDL 3.5 Ratio (Not establshd); TRIGLYCERIDE 42 mg/dL (<150); VLDL 8 mg/dL (<40)
[2020-11-26 06:43] LABS: SERUM ASSESSMENT Clear
[2020-11-26 06:48] LABS: HEMOGLOBIN 6.2 gm/dL (14.0-18.0)
[2020-11-26 15:34] LABS: HEMATOCRIT 21.6 % (42.0-52.0); MCH 19.8 pg (26.0-34.0); MCHC 30.9 g/dL (28.0-37.0); MCV 64.1 fL (80.0-100.0); MPV 6.5 fl. (7.2-11.1); RBC 3.38 mil/uL (4.50-6.00); WBC 6.1 thou/uL (4.0-11.0)
[2020-11-26 15:37] LABS: CALCIUM 7.8 mg/dL (8.5-10.1); CREATININE 1.1 mg/dL (0.6-1.3); POTASSIUM 4.9 mmol/L (3.5-5.1)
[2020-11-26 15:38] LABS: HEMOGLOBIN 6.7 gm/dL (14.0-18.0)
[2020-11-26 23:48] LABS: HEMATOCRIT 24.1 % (42.0-52.0); HEMOGLOBIN 7.5 gm/dL (14.0-18.0)
[2020-11-27 00:24] VITALS: BP 100/66
[2020-11-27 04:42] VITALS: BP 99/58
[2020-11-27 04:59] LABS: HEMATOCRIT 22.8 % (42.0-52.0); HEMOGLOBIN 7.2 gm/dL (14.0-18.0); MCH 20.8 pg (26.0-34.0); MCHC 31.7 g/dL (28.0-37.0); MCV 65.5 fL (80.0-100.0); MPV 7.9 fl. (7.2-11.1); RBC 3.48 mil/uL (4.50-6.00); RDW-CV 29.2 % (10.5-14.5); WBC 6.3 thou/uL (4.0-11.0)
[2020-11-27 05:14] LABS: ALBUMIN 2.3 g/dL (3.4-5.0); CALCIUM 7.6 mg/dL (8.5-10.1); CREATININE 1.1 mg/dL (0.6-1.3); MAGNESIUM 2.2 mg/dL (1.8-2.4); TOTAL PROTEIN 7.1 g/dL (6.4-8.2)
[2020-11-27 05:15] LABS: POTASSIUM 3.9 mmol/L (3.5-5.1)
[2020-11-27 05:36] LABS: GLYCOHEMOGLOBIN (HGB A1C) 8.4 % (4.8-5.6)
[2020-11-27 11:45] VITALS: BP 96/58
[2020-11-27 16:00] VITALS: BP 99/58
--- NOTE | 2020-11-27 19:44 | CON ---
[facility] [address] [place] [address] CONSULTATION Name: VALORIE NAVA Room: [address] IN M.R.#: [id number] Admission: 11/25/20 Attend Phys: Cruzito Haney Discharge: Date of : 55 Report #: [id number] THIS REPORT FOR: cc: Wojciech Manriquez Steve T. DO Khosla, Parveen K. MD ~ DATE OF CONSULTATION: 11/26/2020 HISTORY OF PRESENT ILLNESS: This is a 65-year-old male patient who was seen by me for weakness. This patient has large records in the computer. I reviewed all of it. In 2015, he was seen by Dr. Flaherty for an episode which could have been syncope, seizure, or cataplexy. He apparently had a history of falling down and syncope. Now, also, he fell down. This was a few weeks ago and then 3 days after that he woke up with the right wrist drop, which is about the same. Record says it was about a week ago, but to me, I do not get any history and it may have been even 2 weeks ago. His problems are massive. He has a pretty significant cellulitis in lower extremities. He has edema there. He has a wound on his buttock area and he basically has been lying there on the recliner. When he goes to bathroom he needed a lot of help. He has a history of diabetes, hyperlipidemia, four-vessel disease, and his CT scan shows that he had a stroke in the past. REVIEW OF SYSTEMS: A 14-point review of systems is carried out and it is positive for the fact that he is severely anemic. He is septic. He has been admitted with septic shock in the past. He appeared to have pretty significant spasm. His sodium is only 124. His blood sugar is not very high, it is 159, so I suspect his hyponatremia is real and is not spurious because of the patient's blood sugar abnormality. He appeared to have spasms in his legs. That was his prominent 14-point review of system. PAST MEDICAL HISTORY: Positive for numerous problems. He had a kidney failure one time, he had a septic shock, and a CT scan which shows a prior history of stroke. He had a coronary artery disease in the past. FAMILY HISTORY: Unremarkable. SOCIAL HISTORY: His and son were there and I talked to them. PHYSICAL EXAMINATION: The patient's examination indicated he is alert and responsive. He can follow simple commands. His mentation is unremarkable. Cranial nerve examination was difficult to tell, but appeared to be nonfocal. There is no meningeal in this patient. On the right hand, this patient has a classical right wrist drop. In the lower extremity, he can move, but he is weak, but difficult to tell how much is because of cellulitis [place] [address] CONSULTATION Name: VALORIE NAVA Room: [address] IN [facility]#: [id number] Admission: 11/25/20 Attend Phys: Cruzito Haney Discharge: Date of : 55 Report #: [id number] because of his edema and how much is real weakness. When I do the position sense, some time he can tell, some time he cannot tell, but most of the time he was able to tell. He has no reflexes in the lower extremities, but he is a diabetic. I think his pulses are palpable, but he has edema in the lower extremities. IMPRESSION: Difficult to form in this patient. 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 I am not sure about the generalized weakness, especially the leg weakness. Part of it is expected with infection and such a low hemoglobin, but leg also has swelling. He does have cellulitis and he is predisposed to develop epidural abscess, osteomyelitis, psoas abscess, and multiple other problems. I discussed with him that the test of choice is MRI. He will not do MRI because he says that he is claustrophobic and he cannot lie still for 40 minutes or even less than that. Ultimately, he agreed to do the CT. CT would not tell us about epidural abscess, but if some osteomyelitis or psoas abscess is found then I think we have to present the information again to him and see if we can make him agree for MRI. He is having bad spasms and having difficulty with lying still even in the bed. Hopefully, he will be able to do the CT, but I am not sure he can do either one of them. I have ordered the CT stat. He needs PT/O/T and rehab consult and a splint for his right wrist drop. Thank you very much for this referral and if you have any questions, please feel free to contact me. I spent more than 50 minutes of time and majority was spent counseling, coordinating, and reviewing part of his extensive records. I might mention he had a prior stroke, but that is an incidental finding and does not correlate with his symptoms and that needs to be addressed some other time. <ELECTRONICALLY SIGNED> By: Darren Potts MD 11/27/201943 1431 2204Pfamilia Potts MD /nt
[2020-11-27 19:46] VITALS: BP 102/73
[2020-11-28 00:35] VITALS: BP 98/58
[2020-11-28 05:08] VITALS: BP 92/49
[2020-11-28 05:31] LABS: HEMATOCRIT 24.1 % (42.0-52.0); HEMOGLOBIN 7.4 gm/dL (14.0-18.0); MCH 20.7 pg (26.0-34.0); MCHC 30.8 g/dL (28.0-37.0); MCV 67.1 fL (80.0-100.0); MPV 7.9 fl. (7.2-11.1); RBC 3.59 mil/uL (4.50-6.00); RDW-CV 29.3 % (10.5-14.5); WBC 6.1 thou/uL (4.0-11.0)
[2020-11-28 05:55] LABS: ALBUMIN 2.1 g/dL (3.4-5.0); CALCIUM 7.6 mg/dL (8.5-10.1); CREATININE 0.9 mg/dL (0.6-1.3); MAGNESIUM 2.1 mg/dL (1.8-2.4); TOTAL BILIRUBIN 0.7 mg/dL (<0.1-1.0)
[2020-11-28 06:04] LABS: POTASSIUM 2.6 mmol/L (3.5-5.1)
[2020-11-28 08:10] VITALS: BP 97/62
[2020-11-28 12:00] VITALS: BP 101/58
--- NOTE | 2020-11-28 14:16 | 2DMMODE ---
[place] [address] 2 D/M-MODE ECHOCARDIOGRAM Name: VALORIE NAVA Room: [address] IN [facility]#: [id number] Admission: 11/25/20 Attend Phys: Alex Landaverde Discharge: Date of : 55 Date of Service: 11/28/20 1416 Report #: [id number] THIS REPORT FOR: cc: Wojciech Manriquez,Wojciech Cheek,Reagan Foster MD [facility] ~ APPROVED REPORT Study performed: 11/28/2020 10:58:04 EXAM: Comprehensive 2D, Doppler, and color-flow Echocardiogram Patient Location: In-Patient Room #: [facility] Status: routine BSA: 2.57 HR: 83 bpm BP: 92/49 mmHg Rhythm: Atrial Fibrillation Other Information Study Quality: Good Indications Congestive Heart Failure 2D Dimensions IVSd: 13.18 (7-11mm) LVOT Diam: 20.16 (18-24mm) LVDd: 45.90 mm PWd: 11.78 (7-11mm) Ascending Ao: 36.58 (22-36mm) LVDs: 34.52 (25-40mm) Aortic Root: 35.99 mm Volumes Left Atrial Volume (Systole) LA ESV Index: 33.90 mL/m2 Aortic Valve AoV Peak Jj.: 1.57 m/s AO Peak Gr.: 9.87 mmHg LVOT Max P.12 mmHg AO Mean Gr.: 4.77 mmHg LVOT Mean P.77 mmHg LVOT Max V: 1.01 m/s AO V2 VTI: 25.21 cm LVOT Mean V: 0.60 m/s CHIDI (VTI): 2.29 cm2 LVOT V1 VTI: 18.08 [place] [address] 2 D/M-MODE ECHOCARDIOGRAM Name: VALORIE NAVA Room: [address] IN [facility]#: [id number] Admission: 11/25/20 Attend Phys: Alex Landaverde Discharge: Date of : 55 Date of Service: 11/28/20 1416 Report #: [id number] TDI Medial E' Jj.: 0.11 m/s Lateral E' Jj.: 0.12 m/s Pulmonary Valve PV Peak Jj.: 1.00 m/s PV Peak Gr.: 4.02 mmHg Tricuspid Valve RAP Estimate: 15.00 mmHg TR Peak Gr.: 27.36 mmHg RVSP: 42.00 mmHg PA Pressure: 42.00 mmHg Left Ventricle The left ventricle is normal size. There is normal LV segmental wall motion. Mild concentric left ventricular hypertrophy. Left ventricular systolic function is borderline. LVEF is 50-55%. This study is not technically sufficient to allow evaluation of the LV diastolic function due to atrial fibrillation. Right Ventricle The right ventricle is normal size. The right ventricular systolic function is normal. Atria Left atrium is mildly dilated. The right atrium size is normal. Aortic Valve Mild aortic valve sclerosis. trace aortic regurgitation is present. There is no aortic valvular stenosis. Mitral Valve The mitral valve is normal in structure. Mild mitral regurgitation. No evidence of mitral valve stenosis. Tricuspid Valve The tricuspid valve is normal in structure. Trace tricuspid regurgitation. estimated pa pressure 35 mm Hg Pulmonic Valve The pulmonary valve is normal in structure. Mild pulmonic regurgitation. Great Vessels The aortic root is normal in size. IVC is dilated and collapses <50% [place] [address] 2 D/M-MODE ECHOCARDIOGRAM Name: VALORIE NAVA Room: [address]#: [id number] Admission: 11/25/20 Attend Phys: Alex Landaverde Discharge: Date of : 55 Date of Service: 11/28/20 1416 Report #: [id number] Pericardium There is no pericardial effusion. <Conclusion> Mild concentric left ventricular hypertrophy. LVEF is 50-55%. Left atrium is mildly dilated. Mild aortic valve sclerosis. Mild mitral regurgitation. Trace tricuspid regurgitation. estimated pa pressure 35 mm Hg <ELECTRONICALLY SIGNED> By: Reagan Gaming MD, [facility] 11/28/20 141 15 15 Reagan Gaming MD, [facility] /INF
--- NOTE | 2020-11-28 14:51 | EKG ---
[place] [address] ELECTROCARDIOGRAM REPORT Name: NAVAVALORIE Room: [address] ADM IN M.R.#: [id number] Admission: 11/25/20 Attend Phys: Alex Landaverde Discharge: Date of : 55 Date of Service: 11/25/202213 Report #: [id number] THIS REPORT FOR: //name// 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: [facility] 1955 Requested By: Alex Landaverde Order Number: [id number] Carlitos MD: Reagan Gaming Measurements Intervals [place] Rate: 82 P: NC: QRS: 93 QRSD: 138 T: -43 QT: 410 QTc: 479 Interpretive Statements Atrial fibrillation Nonspecific intraventricular conduction delay Borderline T abnormalities, inferior leads Compared to ECG 11/25/2020 14:08:35 no change Electronically Signed On 11-28-2020 14:51:33 CDT by Reagan Gaming [email or web address] <ELECTRONICALLY SIGNED> By: Reagan Gaming MD, [facility] 11/28/20 1451 2214 2214 Reagan Gaming MD, [facility] /EPI
[2020-11-28 16:00] VITALS: BP 180/108
[2020-11-28 20:00] VITALS: BP 87/52
[2020-11-29 00:05] VITALS: BP 106/73
[2020-11-29 04:41] VITALS: BP 92/50
[2020-11-29 05:19] LABS: HEMATOCRIT 23.7 % (42.0-52.0); HEMOGLOBIN 7.3 gm/dL (14.0-18.0); MCH 20.9 pg (26.0-34.0); MCHC 30.7 g/dL (28.0-37.0); MCV 68.1 fL (80.0-100.0); MPV 7.9 fl. (7.2-11.1); RBC 3.49 mil/uL (4.50-6.00); RDW-CV 29.8 % (10.5-14.5); WBC 6.5 thou/uL (4.0-11.0)
[2020-11-29 05:40] LABS: ALBUMIN 2.1 g/dL (3.4-5.0); CALCIUM 7.4 mg/dL (8.5-10.1); CREATININE 1.1 mg/dL (0.6-1.3); MAGNESIUM 1.8 mg/dL (1.8-2.4); POTASSIUM 3.3 mmol/L (3.5-5.1); TOTAL BILIRUBIN 0.6 mg/dL (<0.1-1.0); TOTAL PROTEIN 6.9 g/dL (6.4-8.2)
[2020-11-29 07:40] VITALS: BP 84/40
[2020-11-29 12:22] VITALS: BP 116/56
[2020-11-29 16:37] VITALS: BP 101/63
[2020-11-29 20:00] VITALS: BP 103/46
[2020-11-30] VITALS: BP 90/52
[2020-11-30 04:00] VITALS: BP 114/61
[2020-11-30 07:40] VITALS: BP 84/53
[2020-11-30 08:58] LABS: HEMOGLOBIN 7.9 gm/dL (14.0-18.0); MCH 20.7 pg (26.0-34.0); MCHC 30.2 g/dL (28.0-37.0); MCV 68.5 fL (80.0-100.0); MPV 7.9 fl. (7.2-11.1); RBC 3.8 mil/uL (4.50-6.00); RDW-CV 30.2 % (10.5-14.5); WBC 6.2 thou/uL (4.0-11.0)
[2020-11-30 12:00] VITALS: BP 108/47
[2020-11-30] MEDS ORDERED: KEFLEX250 MG PO (12:46)
[2020-11-30] MEDS ORDERED: PROTONIX40 M2 PO (12:46)
[2020-11-30] MEDS ORDERED: IRON325 PO (12:46)
--- NOTE | 2020-11-30 15:37 | CON ---
[address] [address] CONSULTATION Name: VALORIE NAVA Room: [address] IN M.R.#: [id number] Admission: 11/25/20 Attend Phys: Cruzito Haney Discharge: Date of : 55 Report #: [id number] THIS REPORT FOR: cc: Wojciech Manriquez Steve T. DO Namin, Farid M. MD ~ cc: Wojciech Manriquez DO DATE OF CONSULTATION: 11/26/2020 REQUESTING PHYSICIAN: Gisella Sky MD HISTORY OF PRESENT ILLNESS: This is a 65-year-old male who has multiple medical problems as he has history of diabetes; coronary artery disease, status post CABG; dyslipidemia, who has been complaining of generalized weakness for the past couple of weeks. The patient also has suffered couple of falls during the last week. This prompted him to come to the hospital. The patient found to have severe anemia and has received 3 units of packed RBC. He denies hematochezia, melena or abdominal pain. He takes Xarelto on a regular basis. His hemoglobin on arrival was 5.4. His hemoglobin today is 7.5. PAST MEDICAL HISTORY: Significant for history of coronary artery disease, status post CABG; dyslipidemia; diabetes mellitus type 2; lymphedema and lower extremity wounds; cellulitis; hypertension; CHF; electrolyte derangement. MEDICATIONS: Please refer to MAR. ALLERGIES: No known drug allergies. SOCIAL HISTORY: The patient denies tobacco, but occasionally may have alcohol use. FAMILY HISTORY: Negative for GI malignancy. PHYSICAL EXAMINATION: VITAL SIGNS: Blood pressure is 91/51, respirations 18, pulse 88, temperature 98. LUNGS: Clear. CARDIOVASCULAR: Regular. ABDOMEN: Large, soft, nontender, nondistended. Bowel sounds are positive. NEUROLOGIC: The patient is alert and oriented x 3. EXTREMITIES: The patient appears to have wounds in the lower extremity and bilateral edema. LABORATORY DATA: Labs reveal sodium of 125, potassium is 4.9, chloride is 96, [place] [address] CONSULTATION Name: VALORIE NAVA Room: [address]#: [id number] Admission: 11/25/20 Attend Phys: Cruzito Haney Discharge: Date of : 55 Report #: [id number] CO2 is 22, BUN is 39, creatinine 1.1, glucose is 151. GFR is 67, AST is 43, ALT is 30 with alk phos of 147, total bili is 0.9. WBC is 6.1 with hemoglobin of 7.5 after transfusion, note that he presented with hemoglobin of 5.4, platelet is 313. IMAGING: CT of the head was obtained which showed no acute intracranial process. ASSESSMENT AND PLAN: The patient with multiple medical problems who is on Xarelto, but which has been on hold. He was severely anemic, which was probably cause of his frequent fall and weakness. He has received 3 units of packed RBC and his hemoglobin is 7.5. We will have him on PPI and consider upper and lower endoscopy tomorrow. The patient is agreeable with the plan. <ELECTRONICALLY SIGNED> By: Krupa James MD 11/30/20 1537 0728 1133Krupa James MD /nt
[2020-11-30 17:18] VITALS: BP 108/47
--- NOTE | 2020-12-02 10:13 | PATH ---
[address] [address] PATHOLOGY RPT PROCEDURE Name: CECIL POOL Room: [address] IN M.R.#: [id number] Admission: 11/25/20 Date of : 55 Discharge: 11/30/20 Report #: [id number] Path Case #: [id number] [facility] Accession Number: [id number] . 01 Material submitted: . gastrointestinal site - GASTRITIS IN FORMALIN . 01 Clinical history: . SEPSIS,CVA,R LEG CELLULITIS,ANEMIA EGD IN OR GASTRITIS,ESOPHAGEAL EROSION,HIATAL HERNIA . 02 Diagnosis: Stomach "gastritis", biopsy: - Gastric oxyntic mucosa with mild chronic gastritis and superficial vascular ectasia. - Negative for active inflammation, intestinal metaplasia, dysplasia, and malignancy. -Negative for Helicobacter pylori. (EFFIE:betty; 12/01/2020) QTP 12/02/2020 0927 Local . 02 Electronically signed: . Jessica Msoes MD, Pathologist NPI- [id number] . 01 Gross description: . The specimen is received in formalin, labeled "Cecil Pool and gastris in formalin". It consists of 3 cox irregular soft tissue fragments ranging from 0.2-0.5 cm in greatest dimension. The specimen is entirely submitted between sponges in . (MRF; 11/28/2020) MFE/MFE 11/28/2020 1915 Local . 02 Microscopic: . Immunohistochemical stain results (properly controlled) Helicobacter pylori (A1) - Negative for organisms. (MLK:pit; 12/01/2020) . 02 Pathologist provided ICD-10: K29.50 . 02 CPT . 850252, C51924 Specimen Comment: A courtesy copy of this report has been sent to [phone], [phone] Specimen Comment: [phone], Specimen Comment: Report sent to , DR CUNHA / [place] [address] PATHOLOGY RPT PROCEDURE Name: CECIL POOL Room: [address] IN M.R.#: [id number] Admission: 11/25/20 Date of : 55 Discharge: 11/30/20 Report #: [id number] Path Case #: [id number] Performed at: 01 [facility] [address] [id number] MD Jordan Crews MD Phone: [phone] Performed at: 02 [facility] [address] [id number] MD Ramón Polanco MD Phone: [phone]
== END 2020-11-30 17:56 | disposition home health service (06) | DRG 871 ==
LOC: M.ERS 13:32 → M.2W 14:47 → M.TBA-ER 14:47 → M.2W 20:11
PROVIDERS: Family Medicine; Internal Medicine; Internal Medicine Gastroenterology; ADMIT Internal Medicine; ATTEND Internal Medicine
DX: A41.9 Sepsis, unspecified organism (principal); I50.33 Acute on chronic diastolic (congestive) heart failure; I69.351 Hemiplegia and hemiparesis following cerebral infarction affecting right dominant side; E87.1 Hypo-osmolality and hyponatremia; L03.115 Cellulitis of right lower limb; D62 Acute posthemorrhagic anemia; J44.1 Chronic obstructive pulmonary disease with (acute) exacerbation; D64.9 Anemia, unspecified; E87.5 Hyperkalemia; E11.9 Type 2 diabetes mellitus without complications; K64.8 Other hemorrhoids; E78.5 Hyperlipidemia, unspecified; E78.00 Pure hypercholesterolemia, unspecified; I11.0 Hypertensive heart disease with heart failure; R65.20 Severe sepsis without septic shock; I25.10 Atherosclerotic heart disease of native coronary artery without angina pectoris; K44.9 Diaphragmatic hernia without obstruction or gangrene; K25.9 Gastric ulcer, unspecified as acute or chronic, without hemorrhage or perforation; K31.9 Disease of stomach and duodenum, unspecified; K21.00 Gastro-esophageal reflux disease with esophagitis, without bleeding; Z20.822 Contact with and (suspected) exposure to COVID-19; Z79.4 Long term (current) use of insulin; Z95.1 Presence of aortocoronary bypass graft; Z79.01 Long term (current) use of anticoagulants; Z79.899 Other long term (current) drug therapy; Z88.8 Allergy status to other drugs, medicaments and biological substances

== ENCOUNTER → 2020-12-05 | Outpatient (CLI) | payer MEDICARE ==
[~2020-12-05] MED LIST changes: +IRON325 PO; +KEFLEX250 MG PO; +PROTONIX40 M2 PO
== END ==
LOC: M.WC 08:00
PROVIDERS: ATTEND Surgery
DX: E11.622 Type 2 diabetes mellitus with other skin ulcer (principal); I83.018 Varicose veins of right lower extremity with ulcer other part of lower leg; L97.812 Non-pressure chronic ulcer of other part of right lower leg with fat layer exposed; I83.013 Varicose veins of right lower extremity with ulcer of ankle; L97.312 Non-pressure chronic ulcer of right ankle with fat layer exposed; I83.028 Varicose veins of left lower extremity with ulcer other part of lower leg; L97.822 Non-pressure chronic ulcer of other part of left lower leg with fat layer exposed; I83.012 Varicose veins of right lower extremity with ulcer of calf; L97.212 Non-pressure chronic ulcer of right calf with fat layer exposed; I83.022 Varicose veins of left lower extremity with ulcer of calf; L97.222 Non-pressure chronic ulcer of left calf with fat layer exposed; L89.323 Pressure ulcer of left buttock, stage 3; L89.313 Pressure ulcer of right buttock, stage 3; L98.411 Non-pressure chronic ulcer of buttock limited to breakdown of skin; L89.893 Pressure ulcer of other site, stage 3; L97.121 Non-pressure chronic ulcer of left thigh limited to breakdown of skin; E11.621 Type 2 diabetes mellitus with foot ulcer; I83.015 Varicose veins of right lower extremity with ulcer other part of foot; L97.511 Non-pressure chronic ulcer of other part of right foot limited to breakdown of skin; E11.36 Type 2 diabetes mellitus with diabetic cataract; H26.9 Unspecified cataract; E11.40 Type 2 diabetes mellitus with diabetic neuropathy, unspecified; E78.5 Hyperlipidemia, unspecified; G47.30 Sleep apnea, unspecified; I11.0 Hypertensive heart disease with heart failure; I50.9 Heart failure, unspecified; I89.0 Lymphedema, not elsewhere classified; I25.10 Atherosclerotic heart disease of native coronary artery without angina pectoris; I25.2 Old myocardial infarction; J44.9 Chronic obstructive pulmonary disease, unspecified; K21.9 Gastro-esophageal reflux disease without esophagitis; F17.200 Nicotine dependence, unspecified, uncomplicated; F41.9 Anxiety disorder, unspecified; Z95.1 Presence of aortocoronary bypass graft; Z90.49 Acquired absence of other specified parts of digestive tract; Z79.84 Long term (current) use of oral hypoglycemic drugs

== ENCOUNTER → 2020-12-12 | Outpatient (CLI) | payer MEDICARE | LOC: M.WC 10:30 | PROVIDERS: ATTEND Surgery | DX: E11.622 Type 2 diabetes mellitus with other skin ulcer (principal); I83.012 Varicose veins of right lower extremity with ulcer of calf; L97.212 Non-pressure chronic ulcer of right calf with fat layer exposed; I83.022 Varicose veins of left lower extremity with ulcer of calf; L97.222 Non-pressure chronic ulcer of left calf with fat layer exposed; I83.013 Varicose veins of right lower extremity with ulcer of ankle; L97.312 Non-pressure chronic ulcer of right ankle with fat layer exposed; L89.323 Pressure ulcer of left buttock, stage 3; L89.313 Pressure ulcer of right buttock, stage 3; L98.411 Non-pressure chronic ulcer of buttock limited to breakdown of skin; L89.893 Pressure ulcer of other site, stage 3; L97.121 Non-pressure chronic ulcer of left thigh limited to breakdown of skin; E11.621 Type 2 diabetes mellitus with foot ulcer; I83.015 Varicose veins of right lower extremity with ulcer other part of foot; L97.511 Non-pressure chronic ulcer of other part of right foot limited to breakdown of skin; E11.36 Type 2 diabetes mellitus with diabetic cataract; H26.9 Unspecified cataract; E11.40 Type 2 diabetes mellitus with diabetic neuropathy, unspecified; E78.5 Hyperlipidemia, unspecified; G47.30 Sleep apnea, unspecified; I11.0 Hypertensive heart disease with heart failure; I50.9 Heart failure, unspecified; I89.0 Lymphedema, not elsewhere classified; I25.10 Atherosclerotic heart disease of native coronary artery without angina pectoris; I25.2 Old myocardial infarction; J44.9 Chronic obstructive pulmonary disease, unspecified; K21.9 Gastro-esophageal reflux disease without esophagitis; F17.200 Nicotine dependence, unspecified, uncomplicated; F41.9 Anxiety disorder, unspecified; Z79.84 Long term (current) use of oral hypoglycemic drugs ==

== ENCOUNTER → 2020-12-26 | Outpatient (CLI) | payer MEDICARE | LOC: M.WC 09:23 | PROVIDERS: ATTEND Surgery | DX: E11.622 Type 2 diabetes mellitus with other skin ulcer (principal); I83.012 Varicose veins of right lower extremity with ulcer of calf; L97.212 Non-pressure chronic ulcer of right calf with fat layer exposed; I83.022 Varicose veins of left lower extremity with ulcer of calf; L97.222 Non-pressure chronic ulcer of left calf with fat layer exposed; I83.013 Varicose veins of right lower extremity with ulcer of ankle; L97.312 Non-pressure chronic ulcer of right ankle with fat layer exposed; L89.323 Pressure ulcer of left buttock, stage 3; L89.313 Pressure ulcer of right buttock, stage 3; L98.411 Non-pressure chronic ulcer of buttock limited to breakdown of skin; L89.893 Pressure ulcer of other site, stage 3; L97.121 Non-pressure chronic ulcer of left thigh limited to breakdown of skin; E11.621 Type 2 diabetes mellitus with foot ulcer; I83.015 Varicose veins of right lower extremity with ulcer other part of foot; L97.511 Non-pressure chronic ulcer of other part of right foot limited to breakdown of skin; E11.36 Type 2 diabetes mellitus with diabetic cataract; H26.9 Unspecified cataract; E11.40 Type 2 diabetes mellitus with diabetic neuropathy, unspecified; E78.5 Hyperlipidemia, unspecified; G47.30 Sleep apnea, unspecified; I11.0 Hypertensive heart disease with heart failure; I50.9 Heart failure, unspecified; I89.0 Lymphedema, not elsewhere classified; I25.10 Atherosclerotic heart disease of native coronary artery without angina pectoris; I25.2 Old myocardial infarction; J44.9 Chronic obstructive pulmonary disease, unspecified; K21.9 Gastro-esophageal reflux disease without esophagitis; F17.200 Nicotine dependence, unspecified, uncomplicated; F41.9 Anxiety disorder, unspecified; Z79.84 Long term (current) use of oral hypoglycemic drugs ==

== ENCOUNTER 2020-12-29 19:03 | Inpatient (IN) | payer MEDICARE ==
[~2020-12-29] VITALS: Ht 185.4 cm; Wt 131.3 kg
[2020-12-29 19:04] VITALS: BP 127/68
[2020-12-29 20:19] LABS: HEMATOCRIT 32.5 % (42.0-52.0); HEMOGLOBIN 9.6 gm/dL (14.0-18.0); MCH 22.9 pg (26.0-34.0); MCHC 29.6 g/dL (28.0-37.0); MCV 77.6 fL (80.0-100.0); MPV 6.9 fl. (7.2-11.1); NUCLEATED RBCS 0 /100WBC; PLATELET COUNT* 420 thou/uL (150-400); RBC 4.19 mil/uL (4.50-6.00); RDW-CV 29.6 % (10.5-14.5); WBC 6.9 thou/uL (4.0-11.0)
[2020-12-29 20:36] LABS: CALCIUM 8.1 mg/dL (8.5-10.1); CREATININE 1.2 mg/dL (0.6-1.3); POTASSIUM 5.5 mmol/L (3.5-5.1)
[2020-12-29 20:46] LABS: ALBUMIN 2.5 g/dL (3.4-5.0); MAGNESIUM 1.9 mg/dL (1.8-2.4); TOTAL BILIRUBIN 0.7 mg/dL (<0.1-1.0)
[2020-12-29 21:00] LABS: ABSOLUTE BASOPHILS 0.1 thou/uL (0.0-0.2); ABSOLUTE EOSINOPHILS 0.2 thou/uL (0.0-0.7); ABSOLUTE LYMPHOCYTES 0.8 thou/uL (0.8-5.3); ABSOLUTE MONOCYTES 0.9 thou/uL (0.0-1.2); ABSOLUTE NEUTROPHILS 4.9 thou/uL (1.6-8.1)
[2020-12-29 21:01] LABS: HYPOCHROMASIA 2+; POLYCHROMASIA 1+
[2020-12-29 21:03] LABS: ANISOCYTOSIS 3+; MICROCYTES 1+; PLATELET ESTIMATE ADEQUATE
[2020-12-29 23:02] LABS: BE 3.4 mmol/L (-2 to +3); PO2 102.6 mmHg (75.0-100.0)
[2020-12-29 23:05] LABS: PCO2 66.2 mmHg (35.0-45.0); pH 7.292 (7.340-7.450)
[2020-12-30] VITALS (9 sets, daily range): BP systolic 105–139; BP diastolic 64–84
--- NOTE | 2020-12-30 09:57 | EKG ---
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 : 1955 Requested By: Sanjuana Herzog Order Number: [id number] MD: Reagan Gaming Measurements Intervals [place] Rate: 89 P: TN: QRS: 65 QRSD: 115 T: 152 QT: 395 QTc: 481 Interpretive Statements atrial fibrillation Nonspecific intraventricular conduction delay Abnormal T, consider ischemia, lateral leads Baseline wander in lead(s) V1 Compared to ECG 11/25/2020 22:14:24 Possible ischemia now present Electronically Signed On 12-30-2020 9:57:03 CDT by Reagan Gaming [email or web address] <ELECTRONICALLY SIGNED> By: Reagan Gaming MD, FAC 12/30/20 0957 190 07 Reagan Gaming MD, FAC /EPI
[2020-12-30 10:42] LABS: URINE BILIRUBIN NEGATIVE (Negative); URINE BLOOD NEGATIVE (Negative); URINE CLARITY CLEAR; URINE COLOR YELLOW; URINE GLUCOSE-RANDOM NEGATIVE (Negative); URINE KETONES NEGATIVE (Negative); URINE LEUKOCYTES-REFLEX NEGATIVE (Negative); URINE NITRITE-REFLEX NEGATIVE (Negative); URINE PROTEIN 1+ (Negative); URINE SPECIFIC GRAVITY 1.025 (1.005-1.030); URINE UROBILINOGEN 0.2 E.U./dl (0.2-1.0)
--- NOTE | 2020-12-30 15:10 | NUR ---
SPOKE WITH DR. GUADALUPE REGARDING PT'S LABS & LACK OF APPETITE. PT DECLINING MEALS & PO FLUIDS. VSS, PT RESTING IN BED WITH EYES CLOSED, RESPONDING TO VERBAL STIMULI. NO NEW ORDERS FROM PROVIDER. WILL CONTINUE TO MONITOR & ENCOURAGE FLUIDS
[2020-12-30 21:20] LABS: BE 2.3 mmol/L (-2 to +3)
[2020-12-30 21:22] LABS: pH 7.259 (7.340-7.450)
[2020-12-30 21:23] LABS: PCO2 70.3 mmHg (35.0-45.0); PO2 139.2 mmHg (75.0-100.0)
--- NOTE | 2020-12-30 21:35 | NUR ---
INTUBATION PERFORMED BY DR. VASQUEZ WITHOUT COMPLICATIONS.
[2020-12-31] VITALS (51 sets, daily range): BP systolic 97–135; BP diastolic 50–76
[2020-12-31 01:31] LABS: BE 3.5 mmol/L (-2 to +3); PO2 97.9 mmHg (75.0-100.0); pH 7.306 (7.340-7.450)
[2020-12-31 01:32] LABS: PCO2 63.1 mmHg (35.0-45.0)
[2020-12-31 08:31] LABS: ABSOLUTE BASOPHILS 0.1 thou/uL (0.0-0.2); ABSOLUTE EOSINOPHILS 0.3 thou/uL (0.0-0.7); ABSOLUTE LYMPHOCYTES 0.7 thou/uL (0.8-5.3); ABSOLUTE MONOCYTES 0.7 thou/uL (0.0-1.2); BASOPHILS 1.2 %; EOSINOPHILS 5.3 %; HEMATOCRIT 28.7 % (42.0-52.0); HEMOGLOBIN 8.5 gm/dL (14.0-18.0); LYMPHOCYTES 11.8 %; MCH 23.1 pg (26.0-34.0); MCHC 29.6 g/dL (28.0-37.0); MCV 77.8 fL (80.0-100.0); MONOCYTES 11.6 %; MPV 6.7 fl. (7.2-11.1); NUCLEATED RBCS 0 /100WBC; PLATELET COUNT* 351 thou/uL (150-400); POLYS 70.1 %; RBC 3.69 mil/uL (4.50-6.00); RDW-CV 28.7 % (10.5-14.5); WBC 5.7 thou/uL (4.0-11.0)
[2020-12-31 08:37] LABS: ALBUMIN 2.1 g/dL (3.4-5.0); CALCIUM 8.2 mg/dL (8.5-10.1); CREATININE 0.9 mg/dL (0.6-1.3); POTASSIUM 4.6 mmol/L (3.5-5.1); TOTAL BILIRUBIN 0.6 mg/dL (<0.1-1.0)
[2020-12-31 08:59] LABS: PLATELET ESTIMATE ADEQUATE
[2020-12-31 14:02] LABS: BE 6.7 mmol/L (-2 to +3); PCO2 49.5 mmHg (35.0-45.0); PO2 76.1 mmHg (75.0-100.0); pH 7.428 (7.340-7.450)
[2021-01-01] VITALS (79 sets, daily range): BP systolic 83–124; BP diastolic 38–70
--- NOTE | 2021-01-01 05:08 | NUR ---
ASSUMED CARE FROM DAY SHIFT NURSE, PT SEDATED ON VENT, VITAL SIGNS STABLE AFIB WITH A CONTROL RATE OF 61. TURNED EVERY 2 HOURS , GENERALIZED EDEMA.WILL CONTINUE WITH CURRENT PLAN OF CARE AND WILL REPORT CHANGES ABNORAL FINDINGS.
[2021-01-01 06:33] LABS: BE 7.6 mmol/L (-2 to +3); PCO2 41.6 mmHg (35.0-45.0); PO2 79.2 mmHg (75.0-100.0); pH 7.497 (7.340-7.450)
[2021-01-02] VITALS (67 sets, daily range): BP systolic 88–144; BP diastolic 50–91
--- NOTE | 2021-01-02 07:26 | NUR ---
NO ACUTE CHANGES ON THIS SHIFT, ROUNDING COMPLETED AND ALL NEEDS MET
[2021-01-02 08:32] LABS: ABSOLUTE BASOPHILS 0.1 thou/uL (0.0-0.2); ABSOLUTE EOSINOPHILS 0.2 thou/uL (0.0-0.7); ABSOLUTE LYMPHOCYTES 0.8 thou/uL (0.8-5.3); ABSOLUTE MONOCYTES 0.7 thou/uL (0.0-1.2); ABSOLUTE NEUTROPHILS 3.9 thou/uL (1.6-8.1); BASOPHILS 1.1 %; EOSINOPHILS 3.9 %; HEMATOCRIT 30.4 % (42.0-52.0); HEMOGLOBIN 9.2 gm/dL (14.0-18.0); LYMPHOCYTES 13.9 %; MCHC 30.4 g/dL (28.0-37.0); MCV 75.5 fL (80.0-100.0); MONOCYTES 12.4 %; MPV 6.4 fl. (7.2-11.1); NUCLEATED RBCS 0 /100WBC; PLATELET COUNT* 366 thou/uL (150-400); POLYS 68.7 %; RBC 4.03 mil/uL (4.50-6.00); RDW-CV 28.7 % (10.5-14.5); WBC 5.7 thou/uL (4.0-11.0)
[2021-01-02 08:39] LABS: CALCIUM 7.9 mg/dL (8.5-10.1); CREATININE 0.9 mg/dL (0.6-1.3); MAGNESIUM 1.6 mg/dL (1.8-2.4); POTASSIUM 3.4 mmol/L (3.5-5.1); TOTAL BILIRUBIN 0.9 mg/dL (<0.1-1.0)
[2021-01-02 09:06] LABS: PLATELET ESTIMATE ADEQUATE; POLYCHROMASIA 1+; TARGET CELLS 1+
--- NOTE | 2021-01-02 10:07 | NUR ---
WOUND NURSE: PATIENT SEEN TO ADDRESS MULTIPLE LESIONS ON RLE AND LT POSTERIOR THIGH. PATIENT WITH 2 TO 3 PLUS EDEMA IN BLE. PAPLABLE DP PULSES. TOES WARM AND PINK. RIGHT FOOT INSTEP FULL THICKNESS WOUND MEASURES 0.8 X 0.5 X 0.2 CM. RIGHT TIBIA MEASURES 2.5 X 1.7 X 0.2 CM. RIGHT PROXIMAL LATERAL LOWER EXT MEASURES 4.0 X 1.5 X 0.2 CM. RIGHT DISTAL LATERAL LOWER EXT MEASURES 4.0 X 2.5 X 0.2 CM. LEG AND FOOT WOUNDS ALL WITH 50% SLOUGH, 50% RED, NONGRANULATING TISSUE. NO PERIWOUND REDNESS, WARMTH, OR INDURATION. LT POSTERIOR THIGH MEASURES 1.3 X 3.0 X 0.2 CM. CONTAINS RED GRANULATING TISSUE IN WOUND BED. WOUND CARE PROVIDED PRESCRIBED.
[2021-01-02 13:54] LABS: APTT 28.7 Seconds (25.0-31.3); INR 1.2; PROTIME 12.4 Seconds (9.20-11.50)
--- NOTE | 2021-01-02 15:53 | NUR ---
Patient admitted for CHF, cellulitis, PNA, hypoxia and fall. Patient is currently on vent (FiO2 40% and peep 5) and has demenia so CM Dir reached out to next of kin (Liliana Estrella-Dtr) to introduce role of CM. Prior to admission patient was independent with ADLS and uses a walker for ambulation. Hx of [facility]. No hx of home O2, SNF/rehab, dialysis, BHS or infusion therapy. PCP is Wojciech Manriquez. Per dtr, patient's has dementia and both the patient and fall a lot at home. Dtr feels that patient is not safe to go home and would benefit from rehab. Advised that therapies will need to work with patient if/when patient is off vent. If patient has to go home, dtr would like resources for private duty with the plan for AL in the future for both patient and his . No DPOA. Patient currently on vent with sedation.
[2021-01-02 16:12] LABS: BF RBC <1000 /mm3; TOTAL CELL COUNT 281 /mm3
[2021-01-02 16:21] LABS: CLARITY CLEAR
[2021-01-02 16:22] LABS: TOTAL VOLUME 1260 ml
[2021-01-02 17:11] LABS: BF EOSINOPHILS 2 %; BF LYMPHOCYTES 57 %; BF MONOCYTES 23 %; BF POLYS 18 %; BF TISSUE 18 /100 WBC
[2021-01-02 17:12] LABS: SOURCE PLEURAL FLUID
--- NOTE | 2021-01-02 17:25 | 2DMMODE ---
[place] [address] 2 D/M-MODE ECHOCARDIOGRAM Name: VALORIE NAVA Room: [address] IN [facility]#: [id number] Admission: 12/29/20 Attend Phys: Alex Landaverde Discharge: Date of : 55 Date of Service: 01/02/21 1724 Report #: [id number] THIS REPORT FOR: cc: Wojciech Manriquez Steve T. DO Holkins,Andres Hernandez MD [facility] ~ APPROVED REPORT Study performed: 01/02/2021 14:26:46 EXAM: Comprehensive 2D, Doppler, and color-flow Echocardiogram Patient Location: In-Patient Room #: 004 Status: routine BSA: 2.58 HR: 97 bpm BP: 121/68 mmHg Rhythm: NSR Other Information Study Quality: Good Indications Congestive Heart Failure Dyspnea 2D Dimensions IVSd: 13.36 (7-11mm) LVOT Diam: 21.25 (18-24mm) LVDd: 45.17 mm PWd: 9.94 (7-11mm) Ascending Ao: 37.31 (22-36mm) LVDs: 40.19 (25-40mm) Aortic Root: 35.06 mm Volumes Left Atrial Volume (Systole) LA ESV Index: 44.10 mL/m2 Aortic Valve AoV Peak Jj.: 1.23 m/s AO Peak Gr.: 6.05 mmHg LVOT Max P.80 mmHg AO Mean Gr.: 3.45 mmHg LVOT Mean P.26 mmHg LVOT Max V: 0.84 m/s AO V2 VTI: 22.35 cm LVOT Mean V: 0.51 m/s CHIDI (VTI): 2.18 cm2 LVOT V1 VTI: 13.75 [place] [address] 2 D/M-MODE ECHOCARDIOGRAM Name: VALOREI NAVA Room: [address] IN [facility].#: [id number] Admission: 12/29/20 Attend Phys: Alex Landaverde Discharge: Date of : 55 Date of Service: 01/02/21 1724 Report #: [id number] TDI Medial E' Jj.: 0.09 m/s Lateral E' Jj.: 0.11 m/s Pulmonary Valve PV Peak Jj.: 0.86 m/s PV Peak Gr.: 2.95 mmHg Tricuspid Valve RAP Estimate: 15.00 mmHg TR Peak Gr.: 29.18 mmHg RVSP: 44.00 mmHg PA Pressure: 44.00 mmHg Left Ventricle The left ventricle is normal size. There is normal LV segmental wall motion. There is normal left ventricular wall thickness. Left ventricular systolic function is mild to moderately decreased. LVEF is 40-45%. This study is not technically sufficient to allow evaluation of the LV diastolic function due to atrial fibrillation. Right Ventricle The right ventricle is normal size. The right ventricular systolic function is normal. Atria Left atrium is moderately dilated. The right atrium size is normal. Aortic Valve Mild aortic valve sclerosis. No aortic regurgitation is present. There is no aortic valvular stenosis. Mitral Valve The mitral valve is normal in structure. Mild mitral regurgitation. No evidence of mitral valve stenosis. Tricuspid Valve The tricuspid valve is normal in structure. Mild tricuspid regurgitation. Mild pulmonary hypertension. Pulmonic Valve The pulmonary valve is normal in structure. Mild pulmonic regurgitation[place] [address] 2 D/M-MODE ECHOCARDIOGRAM Name: VAOLRIE NAVA Room: [address]#: [id number] Admission: 12/29/20 Attend Phys: Alex Landaverde Discharge: Date of : 55 Date of Service: 01/02/21 1724 Report #: [id number] The aortic root is normal in size. IVC is dilated and collapses <50% with inspiration. Pericardium There is no pericardial effusion. <Conclusion> The left ventricle is normal size. There is normal left ventricular wall thickness. Left ventricular systolic function is mild to moderately decreased. LVEF is 40-45%. This study is not technically sufficient to allow evaluation of the LV diastolic function due to atrial fibrillation. The right ventricle is normal size. Left atrium is moderately dilated. The right atrium size is normal. Mild aortic valve sclerosis. No aortic regurgitation is present. There is no aortic valvular stenosis. The mitral valve is normal in structure. Mild mitral regurgitation. The tricuspid valve is normal in structure. Mild tricuspid regurgitation. Mild pulmonary hypertension. IVC is dilated and collapses <50% with inspiration. There is no pericardial effusion. There is normal LV segmental wall motion. <ELECTRONICALLY SIGNED> By: Andres Menjivar MD, FACC 01/02/211723 23 23 Andres Menjivar MD, FACC /INF
[2021-01-02 17:28] LABS: BE 3.2 mmol/L (-2 to +3); PO2 102.2 mmHg (75.0-100.0); pH 7.429 (7.340-7.450)
[2021-01-02 19:48] LABS: CALCIUM 7.7 mg/dL (8.5-10.1); CREATININE 0.8 mg/dL (0.6-1.3); MAGNESIUM 1.8 mg/dL (1.8-2.4); POTASSIUM 3.4 mmol/L (3.5-5.1)
[2021-01-03] VITALS (27 sets, daily range): BP systolic 98–138; BP diastolic 49–84
[2021-01-03 05:52] LABS: ABSOLUTE BASOPHILS 0.1 thou/uL (0.0-0.2); ABSOLUTE EOSINOPHILS 0.3 thou/uL (0.0-0.7); ABSOLUTE LYMPHOCYTES 0.6 thou/uL (0.8-5.3); ABSOLUTE MONOCYTES 0.7 thou/uL (0.0-1.2); ABSOLUTE NEUTROPHILS 4.8 thou/uL (1.6-8.1); BASOPHILS 1.1 %; EOSINOPHILS 4.2 %; HEMATOCRIT 30.2 % (42.0-52.0); HEMOGLOBIN 8.9 gm/dL (14.0-18.0); MCH 22.7 pg (26.0-34.0); MCHC 29.3 g/dL (28.0-37.0); MCV 77.3 fL (80.0-100.0); MONOCYTES 10.2 %; MPV 6.7 fl. (7.2-11.1); NUCLEATED RBCS 0 /100WBC; PLATELET COUNT* 349 thou/uL (150-400); POLYS 75.5 %; WBC 6.4 thou/uL (4.0-11.0)
[2021-01-03 06:01] LABS: ALBUMIN 2.2 g/dL (3.4-5.0); CALCIUM 7.9 mg/dL (8.5-10.1); CREATININE 0.9 mg/dL (0.6-1.3); MAGNESIUM 1.7 mg/dL (1.8-2.4); PHOSPHORUS* 3.5 mg/dL (2.5-4.9); POTASSIUM 3.3 mmol/L (3.5-5.1); TOTAL PROTEIN 6.9 g/dL (6.4-8.2)
--- NOTE | 2021-01-03 12:56 | NUR ---
PT TRANSFERRED TO ROOM 229 VIA BED WITH NURSING STAFF ALL BELONGINGS PACKED AND SENT WITH PT
--- NOTE | 2021-01-03 15:50 | NUR ---
Case and plan of care reviewed with MD each weekday during patient's length of stay. Continue plan of care per MD orders for current dx. Extubated and on 4L O2. Will be downgraded to Tele status if remains stable this am. Transfered to Tele, CM will continue to follow for discharge planning needs.
[2021-01-03 19:13] LABS: CALCIUM 7.9 mg/dL (8.5-10.1); CREATININE 0.8 mg/dL (0.6-1.3); MAGNESIUM 1.5 mg/dL (1.8-2.4); POTASSIUM 3.1 mmol/L (3.5-5.1)
--- NOTE | 2021-01-03 19:38 | NUR ---
Pt transferred to unit from ICU this afternoon. VSS. A&O X4 but forgetful at times. O2 at 2L per NC. K+ and Mg++ low per am labs. Replacement given. Will continue to monitor.
--- NOTE | 2021-01-03 21:27 | NUR ---
PT TRANSFERRED TO TELE
[2021-01-04] VITALS (7 sets, daily range): BP systolic 89–138; BP diastolic 52–90
--- NOTE | 2021-01-04 07:25 | NUR ---
PT SLEPT MOST OF SHIFT. ASSESSMENT DOCUMENTED. MEDS GIVEN PER E-MAR. IV PATENT. NO REPORTS OF PAIN. PT ON 2L NC THIS SHIFT. ATTEMPTED BIPAP WHILE ASLEEP, REFUSED TO WEAR AFTER ABOUT [address] TO DEPENDANT DRAINAGE. WILL CONTINUE WITH PLAN OF CARE.
[2021-01-04 10:00] LABS: ABSOLUTE BASOPHILS 0.1 thou/uL (0.0-0.2); ABSOLUTE EOSINOPHILS 0.4 thou/uL (0.0-0.7); ABSOLUTE LYMPHOCYTES 0.8 thou/uL (0.8-5.3); ABSOLUTE MONOCYTES 0.7 thou/uL (0.0-1.2); ABSOLUTE NEUTROPHILS 4.5 thou/uL (1.6-8.1); EOSINOPHILS 6.5 %; HEMATOCRIT 29.1 % (42.0-52.0); HEMOGLOBIN 8.6 gm/dL (14.0-18.0); LYMPHOCYTES 12.3 %; MCHC 29.7 g/dL (28.0-37.0); MCV 77.5 fL (80.0-100.0); MPV 7.1 fl. (7.2-11.1); NUCLEATED RBCS 0 /100WBC; PLATELET COUNT* 331 thou/uL (150-400); POLYS 69.2 %; RBC 3.76 mil/uL (4.50-6.00); RDW-CV 27.4 % (10.5-14.5); WBC 6.5 thou/uL (4.0-11.0)
[2021-01-04 10:09] LABS: ALBUMIN 2.2 g/dL (3.4-5.0); CALCIUM 7.8 mg/dL (8.5-10.1); CREATININE 0.9 mg/dL (0.6-1.3); POTASSIUM 3.3 mmol/L (3.5-5.1); TOTAL BILIRUBIN 0.8 mg/dL (<0.1-1.0)
[2021-01-04 10:55] LABS: ANISOCYTOSIS 2+; HYPOCHROMASIA 2+
[2021-01-04 13:43] LABS: MAGNESIUM 1.9 mg/dL (1.8-2.4); POTASSIUM 3.6 mmol/L (3.5-5.1)
--- NOTE | 2021-01-04 15:15 | NUR ---
Case and plan of care reviewed with MD each weekday during patient's length of stay. Continue plan of care per MD orders for current dx. O2 3L nc. recent transfer from ICU. CM will continue to follow for discharge planning needs.
[2021-01-05 04:39] VITALS: BP 97/57
[2021-01-05 05:08] LABS: HEMATOCRIT 29.2 % (42.0-52.0); HEMOGLOBIN 8.8 gm/dL (14.0-18.0); MCH 23.3 pg (26.0-34.0); MCHC 30.2 g/dL (28.0-37.0); MPV 6.9 fl. (7.2-11.1); RBC 3.8 mil/uL (4.50-6.00); RDW-CV 27.2 % (10.5-14.5); WBC 6.2 thou/uL (4.0-11.0)
[2021-01-05 05:42] LABS: ALBUMIN 2.1 g/dL (3.4-5.0); ALKALINE PHOSPHATASE 115 U/L (46-116); ANION GAP < 0 mmol/L (7-16); BUN 10 mg/dL (7-18); CALCIUM 7.5 mg/dL (8.5-10.1); CHLORIDE 105 mmol/L (98-107); CO2 33 mmol/L (21-32); CREATININE 0.8 mg/dL (0.6-1.3); GLUCOSE 101 mg/dL (70-99); MAGNESIUM 1.7 mg/dL (1.8-2.4); POTASSIUM 3.4 mmol/L (3.5-5.1); SGOT 37 U/L (15-37); SGPT 20 U/L (30-65); SODIUM 136 mmol/L (136-145); TOTAL BILIRUBIN 0.7 mg/dL (<0.1-1.0); TOTAL PROTEIN 6.9 g/dL (6.4-8.2)
--- NOTE | 2021-01-05 05:56 | NUR ---
PT AO X2-3 WITH SOME CONFUSION AT TIMES, HE IS PLEASANT AND CARRIES ON A GOOD CONVERSATION. PT LUNGS DIMINISHED THROUGHOUT WITH PT REPORTING NON PRODUCTIVE COUGH. HE IS A CURRENT TOBACCO USER. PT SAT IN CHAIR MOST OF DAY AND WAS TIRED, SLEEPING WELL THIS PM SHIFT. HEDRICK CATH TO DD WITH CLEAR YELLOW URINE IN ADEQUATE AMOUNTS. TELEMETRY SHOWS AFIB RATE CONTROLLED. LABS OBTAINED VIA RT SUBCLAIVIAN CENTRAL LINE, IV ANTIBIOTICS PER ORDER. SON CALLED TO GET AN UPDATE AND WOULD LIKE PHYSICIAN TO CALL. DR TRIXIE NAVA [phone].
[2021-01-05 08:00] VITALS: BP 103/63
[2021-01-05 12:00] VITALS: BP 108/53
--- NOTE | 2021-01-05 13:30 | NUR ---
BARRIERS TO D/C: IV LASIX, PT BEING DIURESED. O2 NEEDS INCREASED. REHAB CONSULT PLACED. FAMILY SUPPORT NEEDS TO BE ASSESSED FOR REHAB CRITERIA.
--- NOTE | 2021-01-05 14:07 | NUR ---
I AM IN AGREEMENT WITH OZ WEBER'S DOCUMENTATION. MAMIE GARCIA, JOSET
[2021-01-05 15:32] LABS: MAGNESIUM 1.9 mg/dL (1.8-2.4)
[2021-01-05 16:00] VITALS: BP 106/63
[2021-01-05 20:00] VITALS: BP 101/64
[2021-01-06 00:23] VITALS: BP 128/84
--- NOTE | 2021-01-06 04:15 | NUR ---
ASSUMED CARE OF PT AFTER REPORT AT 1930. PT A&OX4. VSS. PHYSICAL ASSESSMENT COMPLETED AND CHARTED. PT ON O2 AT 2LNC/BIPAP AT HS. PT TRACING AFIB/PVC ON TELE. PT WITH HEDRICK TO DEPENDENT DRAIN. PT COMPLAINED OF BILATERAL LEG PAIN & RIGHT FOOT PAIN-MED GIVEN PER JUL. FALL PRECAUTIONS IN PLACE. CALL LIGHT WITHIN REACH.
[2021-01-06 04:41] VITALS: BP 90/50
[2021-01-06 08:00] VITALS: BP 97/58
--- NOTE | 2021-01-06 10:22 | NUR ---
Spoke to Dtr, Liliana, about post ARU support. Dtr and family are moving to [place], [place] with closing date on home here Jan 27. Pt spouse has dementia and they will taking her with them and then traveling back and forth until pt completed ARU. Plan is to then take pt from ARU to [place] where they will have private duty already arranged with his and then pt if needed . Liliana knows Assisted Living is in their near future but wants to work with dad about this once he is well again. She has spoken to a few [place] facilities to find out what needs to be done to arrange transition. CM will continue to follow pt for discharge planning needs.
[2021-01-06 12:00] VITALS: BP 102/55
[2021-01-06 13:08] LABS: BODY FLUID LDH 108 IU/L (())
[2021-01-06 16:00] VITALS: BP 107/44
--- NOTE | 2021-01-06 18:09 | PATH ---
[address] [address] PATHOLOGY RPT PROCEDURE Name: VALORIE NAVA Room: [address] IN [facility]#: [id number] Admission: 12/29/20 Date of : 55 Discharge: Report #: [id number] Path Case #: [id number] Note [facility] Accession Number: [id number] TESTS RESULT FLAG UNITS REF RANGE LAB Clinician Provided Cytology Information No. of containers..01 ThinPrep Vial Source: RIGHT PLEURAL FLUID DIAGNOSIS: 02 RIGHT PLEURAL FLUID NEGATIVE FOR MALIGNANT CELLS. REACTIVE MESOTHELIAL CELLS ARE PRESENT. THIS INTERPRETATION INCLUDES EVALUATION OF A CELL BLOCK. Signed out by: 02 Jose R Bejarano MD, Pathologist NPI- [id number] Performed by: 01 Tasha Ren, Jewel Hole Cornerer ([facility]) Gross description: 01 40ML, CLEAR YELLOW, 1 TP 1 CB /LCS 01/04/2021 9158 Local FLAG LEGEND: L-Low Normal,H-High Normal,LL-Alert Low,HH-Alert High <-Panic Low,>-Panic High,A-Abnormal,AA-Critical Abnormal Performed at: [address] [place] [address] Jordan Crews MD, [address] [place] [address] [address] [place] [address] Jose R Bejarano MD, Performed at: [address], [place], [place] [id number] MD Jordan Crews MD Phone: [phone]
[2021-01-06 20:00] VITALS: BP 100/66
[2021-01-07 01:27] VITALS: BP 93/40
[2021-01-07 04:46] VITALS: BP 101/62
--- NOTE | 2021-01-07 06:45 | NUR ---
PT ALERT ORIENTED TALKATIVE. NO CONFUSION NOTED. O2 AT 2 LITERS NC. BIPAP HS. POST FRAMER TRACING AFIB BBB. ELVIN LOWER LEG WRAPS ON. HEDRICK WITH YELLOW.
[2021-01-07 08:00] VITALS: BP 99/51
[2021-01-07 12:00] VITALS: BP 114/73
[2021-01-07 16:00] VITALS: BP 95/58
--- NOTE | 2021-01-07 18:59 | NUR ---
PATIENT HAD A GOOD DAY. CONTINUES ON ANTIBIOTIC THERAPY. ATRIAL FIB ON CARDIAC MONITOT. PATIENT ON OXYGEN 2 LITERS PER NC. NOTED SOME SUBCU EMPHYZEMA UPPER BACK. PATIENT HAS EXCORIATED PERINEUM. DC'D HEDRICK CATHETER TODAY. CONTINUE BLOOD SUGAR CHECKS AC AND HS.
[2021-01-07 20:00] VITALS: BP 97/57
[2021-01-08] VITALS: BP 97/62
[2021-01-08 04:37] VITALS: BP 113/58
[2021-01-08 08:00] VITALS: BP 104/72
[2021-01-08 12:00] VITALS: BP 96/59
[2021-01-08 16:00] VITALS: BP 89/50
[2021-01-08 20:00] VITALS: BP 103/69
[2021-01-09] VITALS: BP 103/54
[2021-01-09 03:53] VITALS: BP 116/62
[2021-01-09 04:38] LABS: HEMATOCRIT 30.2 % (42.0-52.0); HEMOGLOBIN 9.2 gm/dL (14.0-18.0); MCHC 30.6 g/dL (28.0-37.0); MCV 78.3 fL (80.0-100.0); RBC 3.85 mil/uL (4.50-6.00); RDW-CV 26.8 % (10.5-14.5); WBC 5.5 thou/uL (4.0-11.0)
[2021-01-09 05:05] LABS: ALBUMIN 2.4 g/dL (3.4-5.0); CREATININE 0.9 mg/dL (0.6-1.3); MAGNESIUM 1.8 mg/dL (1.8-2.4); POTASSIUM 3.7 mmol/L (3.5-5.1); TOTAL BILIRUBIN 0.6 mg/dL (<0.1-1.0); TOTAL PROTEIN 7.8 g/dL (6.4-8.2)
[2021-01-09 08:00] VITALS: BP 119/68; BP 165/63
--- NOTE | 2021-01-09 08:10 | NUR ---
ASSUMED CARE OF PT AFTER REPORT AT 1930. PT A&OX4. VSS. PHYSICAL ASSESSMENT COMPLETED AND CHARTED. PT ON O2 AT 2LNC/BIPAP AT HS. PT TRACING AFIB/PVC ON TELE. PT UPWITH 1-ASSIST TO RECLINER. PT COMPLAINED OF GENERALIZED BODY PAIN-MED GIVEN PER MAR. FALL PRECAUTIONS IN PLACE. CALL LIGHT WITHIN REACH.
[2021-01-09] MEDS ORDERED: LASIX 40 MG TAB40 M1 PO (10:02)
[2021-01-09] MEDS ORDERED: SPIRONOLACTONE25 MG PO (10:02)
[2021-01-09] MEDS ORDERED: IPRAT-ALBUT 0.5-3 ML INH (10:02)
[2021-01-09] MEDS ORDERED: DOXYCYCLINE 10100 MG PO (10:02)
[2021-01-09] MEDS ORDERED: LIDOPATCH1 EACH TOP (10:02)
[2021-01-09 11:30] VITALS: BP 103/63
--- NOTE | 2021-01-09 15:19 | NUR ---
PT PENDING INSUR AUTH FOR ARU, MARIAN GARRETT.
[2021-01-09 16:00] VITALS: BP 99/66
[2021-01-09 20:00] VITALS: BP 100/64
[2021-01-10 00:03] VITALS: BP 129/66
[2021-01-10 04:23] VITALS: BP 99/57
--- NOTE | 2021-01-10 06:06 | NUR ---
ASSUMED CARE OF PT AFTER REPORT AT 1930. PT A&OX4. VSS. PHYSICAL ASSESSMENT COMPLETED AND CHARTED. PT ON O2 AT 2LNC. PT TRACING AFIB ON TELE. PT UP WITH 1 ASSIST. PT DENIES PAIN. FALL PRECAUTIONS IN PLACE. CALL LIGHT WITHIN REACH.
[2021-01-10 08:00] VITALS: BP 160/71; BP 98/60
[2021-01-10 12:34] VITALS: BP 101/63
== END 2021-01-10 17:12 | DRG 208 ==
LOC: M.ERS 19:03 → M.2W 21:08 → M.ICU 21:08 → M.TBA-ER 21:08 → M.ICU 12-30 21:17 → M.2W 01-03 12:56
PROVIDERS: Emergency Medicine; Internal Medicine; Internal Medicine Critical Care Medicine; Pediatrics; Personal Emergency Response Attendant; ADMIT Internal Medicine; ATTEND Internal Medicine
PROC: B548ZZA Ultrasonography of Superior Vena Cava, Guidance (ICD-10-PCS; principal; 2020-12-30)
PROC: 02HV33Z Insertion of Infusion Device into Superior Vena Cava, Percutaneous Approach (ICD-10-PCS; principal; 2020-12-30)
PROC: 5A1945Z Respiratory Ventilation, 24-96 Consecutive Hours (ICD-10-PCS; 2021-01-02)
PROC: 0W993ZZ Drainage of Right Pleural Cavity, Percutaneous Approach (ICD-10-PCS; 2021-01-02)
PROC: 0BH17EZ Insertion of Endotracheal Airway into Trachea, Via Natural or Artificial Opening (ICD-10-PCS; 2021-01-02)
PROC: 5A09357 Assistance with Respiratory Ventilation, Less than 24 Consecutive Hours, Continuous Positive Airway Pressure (ICD-10-PCS; 2021-01-03)
PROC: 5A09357 Assistance with Respiratory Ventilation, Less than 24 Consecutive Hours, Continuous Positive Airway Pressure (ICD-10-PCS; 2021-01-05)
PROC: 5A09357 Assistance with Respiratory Ventilation, Less than 24 Consecutive Hours, Continuous Positive Airway Pressure (ICD-10-PCS; 2021-01-08)
PROC: 5A0935A Assistance with Respiratory Ventilation, Less than 24 Consecutive Hours, High Flow/Velocity Cannula (ICD-10-PCS; 2021-01-09)
DX: J96.01 Acute respiratory failure with hypoxia (principal); J15.6 Pneumonia due to other Gram-negative bacteria; G93.41 Metabolic encephalopathy; I50.33 Acute on chronic diastolic (congestive) heart failure; J91.8 Pleural effusion in other conditions classified elsewhere; J98.19 Other pulmonary collapse; E87.0 Hyperosmolality and hypernatremia; E46 Unspecified protein-calorie malnutrition; L03.116 Cellulitis of left lower limb; L03.115 Cellulitis of right lower limb; J96.02 Acute respiratory failure with hypercapnia; Z20.822 Contact with and (suspected) exposure to COVID-19; E78.00 Pure hypercholesterolemia, unspecified; E11.51 Type 2 diabetes mellitus with diabetic peripheral angiopathy without gangrene; E78.5 Hyperlipidemia, unspecified; E87.6 Hypokalemia; I25.10 Atherosclerotic heart disease of native coronary artery without angina pectoris; E87.8 Other disorders of electrolyte and fluid balance, not elsewhere classified; E66.9 Obesity, unspecified; E88.09 Other disorders of plasma-protein metabolism, not elsewhere classified; I11.0 Hypertensive heart disease with heart failure; I48.91 Unspecified atrial fibrillation; B95.62 Methicillin resistant Staphylococcus aureus infection as the cause of diseases classified elsewhere; D63.8 Anemia in other chronic diseases classified elsewhere; Z95.1 Presence of aortocoronary bypass graft; Z88.8 Allergy status to other drugs, medicaments and biological substances; Z88.6 Allergy status to analgesic agent; Z68.38 Body mass index [BMI] 38.0-38.9, adult; Z79.899 Other long term (current) drug therapy

== ENCOUNTER 2021-01-10 14:55 | Inpatient (IN) | payer MEDICARE ==
[~2021-01-10] VITALS: Ht 185.4 cm; Wt 132.5 kg
[~2021-01-10 14:55] MED LIST changes: +DOXYCYCLINE 10100 MG PO; +IPRAT-ALBUT 0.5-3 ML INH; +LASIX 40 MG TAB40 M1 PO; +LIDOPATCH1 EACH TOP; +SPIRONOLACTONE25 MG PO
[2021-01-10 18:00] VITALS: BP 108/62
[2021-01-10 19:00] VITALS: BP 103/66
--- NOTE | 2021-01-10 20:10 | NUR ---
SITTING UP ON SIDE OF BED TALKING TO SON ON CELL. 02 NASAL CANNULA AT 2 LITERS. RIGHT LEG DRESSING DRY/INTACT. PAIN MEDICINE GIVEN FOR COMPLAINT OF RIGHT LEG PAIN. CALL LIGHT WITHIN REACH.
[2021-01-11 05:00] LABS: HEMATOCRIT 29.9 % (42.0-52.0); HEMOGLOBIN 9.1 gm/dL (14.0-18.0); MCH 23.8 pg (26.0-34.0); MCHC 30.6 g/dL (28.0-37.0); MCV 77.9 fL (80.0-100.0); MPV 7.3 fl. (7.2-11.1); RBC 3.84 mil/uL (4.50-6.00); RDW-CV 25.5 % (10.5-14.5)
--- NOTE | 2021-01-11 05:08 | NUR ---
NO FURTHER COMPLAINT OF PAIN. RESTED QUIETLY. VOIDED X ONE PER URINAL WITH ASSIST. STOOD AT BEDSIDE WHILE STAFF PLACED AND HELD THE URINAL. HOURLY ROUNDING IN PROGRESS.
[2021-01-11 05:17] LABS: CALCIUM 8.5 mg/dL (8.5-10.1); CREATININE 0.9 mg/dL (0.6-1.3); POTASSIUM 3.9 mmol/L (3.5-5.1)
[2021-01-11 08:00] VITALS: BP 101/56
--- NOTE | 2021-01-11 15:18 | NUR ---
PT UP WITH GAIT BELT AND ASST X1. PT DID COMPLETE ALL THERAPY. PT DID HAVE COMPLAINT OF PAIN, PAIN MED GIVEN THIS AM. PT HAS DRESSING TO RT LEG CHANGED TODAY BY WOUND NURSE, DRESSING IS DRY AND INTACT. PT IS ON 2L OF 02. PT IS ALERT X4 .PT USES URIAL . PT IS SITTING ON BED ON PHONE WITH CALL LILGHT IN REACH AND FALL PRECAUTIONS IN PLACE.
--- NOTE | 2021-01-11 16:52 | NUR ---
WOUND NURSE: PATIENT SEEN TO ADDRESS LESIONS ON THE RLE AND EDEMA ON THE LLE. LLE IS EDEMATOUS AND HE WAS PROVIDED WITH SIZE F TUBIGRIPS. RLE WITH MULTIPLE VENOUS WOUNDS. RT PROX ANTERIOR 2.8 X 1.2 X 0.2, RT DISTAL ANT 3.0 X 3.0 X 0.2, RT PROX MEDIAL 1.2 X 1.0 X 0.1, RT DISTAL MEDIAL 2.0 X 1.3 X 0.2 CM. ALL CONTAIN RED NONGRANULATING TISSUE IN THE WOUND BED, EXCEPT RT DISTAL ANT WHICH CONTAINED LI DE PAZ SLOUGH IN THE WOUND BED. WOUND CARE WAS PERFORMED PRESCRIBED -- SEE INTERVENTIONS.
--- NOTE | 2021-01-11 18:23 | NUR ---
Case and plan of care reviewed with MD each week during patient's length of stay. Continue plan of care per MD orders for current dx. Pt admitted yesterday, evaluations and treatment plan in progress. Spoke to pt prior to meeting and he just wants to get strong enough to go home. Left Vm with Nava Barkley, . Rounded with Dr Gotti after team meeting.
[2021-01-11 19:00] VITALS: BP 88/43
--- NOTE | 2021-01-11 20:35 | NUR ---
AWAKENED FOR REASSESSMENT AND MEDICATION PASS. 02 NASAL CANNULA AT TWO LITERS. CALL LIGHT WITHIN REACH. SNACK PROVIDED.
--- NOTE | 2021-01-12 05:11 | NUR ---
RESTED SOUNDLY UNTIL ABOUT MIDNIGHT THEN SAT UP ON SIDE OF BED FOR A FEW HOURS. PAIN MEDICINE GIVEN AT 0132 FOR COMPLAINT OF BURNING SENSATION IN RIGHT LEG WITH REIEF. HOURLY ROUNDING IN PROGRESS.
[2021-01-12 07:22] VITALS: BP 104/59
--- NOTE | 2021-01-12 16:53 | NUR ---
PT UP WITH GAIT BELT AND WALKER. PT DID COMPLETE ALL THERAPY. NO COMPLAINTS OF PAIN. PT RT LEG WOULD DRESSING IS DRY. PT ON 2 L 02. PT IS RESTING WITH CALL LIGHT IN REACH AND FALL PRECAUTIONS IN PLACE.
[2021-01-12 20:25] VITALS: BP 101/48
--- NOTE | 2021-01-13 05:38 | NUR ---
ASSUMED CARES AT 1920. ALERT AND ORIENTED. PLEASANT. DENIED ANY NEED FOR PAIN MEDS. O2 2L NC. MOD ASSIST WITH GAIT BELT AND WALKER. STANDS TO USE URINAL. RLE WRAPPED WITH DRSG. TUBIGRIP TO LLE. DID NOT SLEEP WELL. KEPT SITTING UP ON SIDE OF BED OFF AND ON. PT STATED THAT OCCASIONALLY TOOK SLEEP AID AT HOME BUT DOES NOT KNOW NAME OF MED. CALL LIGHT IN REACH AND BED ALARM ON.
[2021-01-13 07:58] VITALS: BP 107/69
[2021-01-13 15:40] VITALS: BP 134/87
--- NOTE | 2021-01-13 15:52 | NUR ---
PT FOUND ON THE FLOOR IN BETWEEN THE ROOM AND BATHROOM DOOR. PT MADE IT TO THE CALL STRING IN BATHROOM AFTER FALLING. DENIES HITTING HIS HEAD. DENIES PAIN. SMALL SKIN TEAR TO R HAND NOTED. DR UFCHS AND DR COOK NOTIFIED. NURSING BUSHING AND BROACH OPERATOR NOTIFIED.
--- NOTE | 2021-01-13 16:36 | NUR ---
PLAN REMAINS TO RE-TEAM THE PT. PT PROGRESSING WELL TOWARDS GOALS. CM WILL REMAIN AVAILABLE TO ASSIST AND FOLLOW NEEDED.
--- NOTE | 2021-01-13 16:53 | NUR ---
PT WORKED WITH THERAPIES THIS AM. PM PT HELD AFTER FALL. PT IS IMPULSIVE. BED ALARM ON. PT FORGETS TO CALL OUT AND GETS UP UNASSISTED. FREQUENT REMINDERS NOT TO GET UP WITHOUT ASSISTANCE. O2 2LNC. DRESSINGS TO BLE CHANGED BY WOUND CARE NURSE. CALL LIGHT IN REACH. FALL PRECAUTIONS IN PLACE.
[2021-01-13 20:25] VITALS: BP 108/59
--- NOTE | 2021-01-14 05:24 | NUR ---
ASSUMED CARES AT 1920. ALERT AND ORIENTED. PLEASANT. DENIED ANY PAIN. REMINDED PT TO CALL BEFORE GETTING UP. PT VERBALIZED UNDERSTANDING. NEURO CHECKS COMPLETED THOUGHOUT THE NIGHT AND WNL. O2 2L NC. USED URINAL. DRSG TO RLE INTACT. PT GIVEN AMBIEN PER REQUEST. WAS ABLE TO SLEEP IN SHORT INTERVALS. NO OTHER ISSUES. CALL LIGHT IN REACH AND BED ALARM ON.
[2021-01-14 08:00] VITALS: BP 99/65
[2021-01-14 11:01] VITALS: BP 99/65
--- NOTE | 2021-01-14 16:32 | NUR ---
PT UP WITH GAIT BELT AND X1 ASST. PT HAS NO COMPLAINTS OF PAIN. PT HAS SKIN TEAR TO RT HAND BANDAIDE APPLIED AND DRESSING IS DRY AND CLEAN.PT HAS NO PAIN FROM FALL YESTERDAY. PT ON 2L 02. PT IS RESTING WITH CALL LIGHT IN REACH AND FALL PRECATIONS IN PLACE. .
[2021-01-14 16:40] VITALS: BP 148/65
[2021-01-14 20:23] VITALS: BP 104/53
--- NOTE | 2021-01-15 04:34 | NUR ---
ASSUMED CARES AT 1920. ALERT AND ORIENTED. PLEASANT. O2 2LNC. MIN ASSIST WITH GAIT BELT AND WALKER. UP TO BATHROOM OR USED URINAL. DID HAVE STOOL INCONTINENCE X 1. AMBIEN GIVEN PER PT REQUEST. LIKES TO SIT UP ON SIDE OF BED. SLEPT OFF AND ON. CALL LIGHT IN REACH AND BED ALARM ON.
[2021-01-15 05:36] VITALS: BP 102/64
[2021-01-15 07:59] VITALS: BP 115/68
--- NOTE | 2021-01-15 14:23 | NUR ---
PT IS UP WITH GAIT BELT AND WALKER, PT HAS NO COMPLAINTS OF PAIN. PT IS GETTING UP AND WALKING WITH SUPERVISION TO TOILET INSTEAD OF USING URINAL. PT IS LAYING IN BED WATCHING TV WITH CALL LIGHT IN REACH AND FALL PRECAUTIONS IN PLACE.
[2021-01-15 20:00] VITALS: BP 123/88
--- NOTE | 2021-01-16 01:05 | NUR ---
ASSUMED CARE AT 1930. PATIENT RESTING IN BED BUT WANTED TO SIT ON THE SIDE OF THE BED OFF AND ON. ENCOURAGED TO USE RECLINER, AND FINALLY ACCEPTED. CHAIR ALARM ON. SAFETY PRECAUTIONS REITERATED TO PATIENT, HE VERBALIZES UNDERSTANDING. UP WITH SBA, GAIT BELT, WALKER. VOIDS YOKO URINE PER URINAL OFTEN. NOW BACK TO TRYING TO SLEEP IN BED. REFUSED TO HAVE TUBIGRIP REMOVED. HOURLY ROUNDS CONTINUE. BED ALARM ON. CALL LITE IN REACH.
[2021-01-16 05:17] LABS: CALCIUM 8.1 mg/dL (8.5-10.1); MAGNESIUM 1.4 mg/dL (1.8-2.4); PHOSPHORUS* 3.4 mg/dL (2.5-4.9); POTASSIUM 3.4 mmol/L (3.5-5.1)
--- NOTE | 2021-01-16 05:38 | NUR ---
WAS UP AND DOWN BETWEEN LYING IN BED, AND SITTING ON SIDE OF THE BED. ONLY IN RECLINER ONCE. C/O THAT THE BED CAUSES HIS SHOULDER TO HURT. STANDS TO VOID, AND VOIDS OFTEN. TURNS SELF EASILY IN BED. UP WTIH SBA, GAIT BELT, TO VOID. DISCARDS WALKER WHEN GOING FROM BED TO CHAIR DESPITE EDUCATION ON PROPER WALKER USE. MEDICATED FOR PAIN ONCE. SEE JUL. HOURLY ROUNDS CONTINUE. BED ALARM ON. CALL LITE IN REACH.
[2021-01-16 07:46] VITALS: BP 103/55
--- NOTE | 2021-01-16 16:56 | NUR ---
PT WAS UP WITH GAIT BELT AND WALKER, PT COMPLETED ALL THERAPY. PT HAD LOW MAGNESIUM 1.5 AND POTASSIUM WAS 3.[address] COOK AND ORDERS WERE PUT IN FOR MAG AND POTASSIUM AND LABS TO BE DRWN AT 1830. PT DID HAVE BM TODAY. PT IS RESTING WITH CALL LIGHT IN REACH AND FALL PRECAUTIONS IN PLACE
[2021-01-16 18:39] LABS: MAGNESIUM 1.4 mg/dL (1.8-2.4); POTASSIUM 3.5 mmol/L (3.5-5.1)
[2021-01-16 20:00] VITALS: BP 103/66
--- NOTE | 2021-01-17 04:34 | NUR ---
ASSUMED PT CARE AT 1930. PT ALERT AND ORIENTED X4, POLITE AND COOPERATIVE WITH CARES. PT SITTING UP ON SIDE OF BED AT SHIFT CHANGE. OXY IR PER PT REQUEST FOR SHOULDER PAIN. PT WOULD LIE DOWN AND SLEEP FOR A TIME THEN BACK TO SITTING UP ON SIDE OF BED. WHEN PT SITS ON SIDE OF BED IT TRIGGERS THE BED ALARM. VOIDED MANY TIMES OVERNIGHT PER URINAL, PT STANDS TO VOID. PT DID CALL OUT TO USE URINAL. DRESSING TO RIGHT LEG WOUND CHANGED BY WOUND NURSE ON 01/16. TUBIGRIP TO LEFT LEG REMAINED IN PLACE PER PT REQUEST. ON 02 PER WA. PT QUITE TALKATIVE, EAGER TO BE DISCHARGED. CALL LIGHT IN REACH, BED ALARM ON FOR SAFETY. HOURLY ROUNDING IN PROGRESS, WILL CONTINUE TO MONITOR.
[2021-01-17 07:32] VITALS: BP 109/69
--- NOTE | 2021-01-17 13:47 | NUR ---
WOUND NURSE: PATIENT SEEN FOR FOLLOW UP ASSESSMENT AND DRESSING CHANGE TO RLE. 4 LESIONS IN CLOSE PROXIMITY OF EACH OTHER. 3 OF 4 WOUNDS MEASURE SMALLER AND ARE DOCUMENTED ON THE PHOTO BY THIS NURSE. ALL WOUNDS WITH RED TO PINK NONGRANULATING TISSUE, DISTALMOST WOUND WITH PALE PINK NONGRANULATING TISSUE IN THE WOUND BED. MODERATE AMOUNT OF SEROUSANGUINOUS DRAINAGE NOTED. THERE IS NO PERIWOUND REDNESS, WARMTH, OR INDURATION PRESENT. MEASUREMENTS FOLLOWS: PROXIMAL ANTERIOR 2 X 1 X 0.2; DISTAL ANTERIOR 3 X 2.5 X 0.2; PROXIMAL MEDIAL 1.5 X 1 X 0.1; DISTAL MEDIAL 0.8 X 0.8 X 0.1 CM. PATIENT REINSTRUCTED ON MEASURES TO PROMOTE HEALING AND PREVENT COMPLICATIONS. PATIENT WITHOUT LLE WOUNDS. NEEDS TO CONTINUE TO WEAR TUBIGRIP DAILY TO LLE.
--- NOTE | 2021-01-17 16:14 | NUR ---
CM ATTEMPTED TO SPEAK TO THE PT TO DISCUSS ANY QUESTIONS OR CONCERNS THAT HE MAY HAVE FOR TOMORROWS TEAM CONFRENCE MEETING. CM CONTACTED PT'S DTR AND SHE INFORMS THAT SHE HAS 'MULTIPLE CONCERNS'. SHE IS CONCERNED ABOUT HIS WOUNDS, AND HIS MOBILITY, AND IF HE WILL BE CONPLIANT WITH THE RECOMMENDATIONS AT D/C. MARTHA AND PHYSICIAN WILL F/U WITH THE PT AND HIS DTR AFTER TOMORROWS MEETING.
--- NOTE | 2021-01-17 16:36 | NUR ---
PT WORKED WITH THERAPIES. UP WITH GAIT BELT, WALKER, AND STB ASSIST. PT NEEDS FREQUENT REMINDERS TO CALL FOR ASSISTANCE PRIOR TO GETTING UP. BED ALARM ON. O2 2LNC. PT REPORTED WHILE WALKING HIM IN THE HALLWAY HE DESATS TO THE UPPER 80'S. O2 INCREASED TO 3L. THEN SATING 94%. DR GUADALUPE NOTIFIED. NO NEW ORDERS. SEEN BY WOUND CARE NURSE. BANDAGE TO LLE CHANGED. CALL LIGHT IN REACH. FALL PRECAUTIONS IN PLACE.
[2021-01-17 19:00] VITALS: BP 113/71
[2021-01-18 04:40] LABS: HEMATOCRIT 29.5 % (42.0-52.0); HEMOGLOBIN 9.1 gm/dL (14.0-18.0); MCH 23.7 pg (26.0-34.0); MCHC 30.9 g/dL (28.0-37.0); MCV 76.7 fL (80.0-100.0); MPV 7.2 fl. (7.2-11.1); RBC 3.85 mil/uL (4.50-6.00); RDW-CV 24.2 % (10.5-14.5); WBC 4.6 thou/uL (4.0-11.0)
[2021-01-18 05:11] LABS: CALCIUM 8.3 mg/dL (8.5-10.1); CREATININE 0.9 mg/dL (0.6-1.3); POTASSIUM 3.5 mmol/L (3.5-5.1)
--- NOTE | 2021-01-18 05:23 | NUR ---
ASSUMED CARES AT 1920. ALERT AND ORIENTED. PLEASANT. DENIED ANY NEED FOR PAIN MEDS. O2 2L NC. MIN ASSIST WITH GAIT BELT AND WALKER. UP TO BATHROOM OR USED URINAL. DRSG TO RLE INTACT. LIKES TO SIT UP ON SIDE OF BED OFF AND ON. SLEPT SOME. CALL LIGHT IN REACH AND BED ALARM ON.
[2021-01-18 07:41] VITALS: BP 102/74
--- NOTE | 2021-01-18 16:02 | NUR ---
WOUND NURSE: RECEIVED CALL FROM PATIENT'S NURSE THAT RLE COMPRESSION WAS REMOVED BECAUSE OF SCHEDULED PROCEDURE. REPLACED DRESSING AND COMPRESSION WRAP PRESCRIBED. THIS WAS TOLERATED WELL BY THE PATIENT.
--- NOTE | 2021-01-18 16:35 | NUR ---
PT WORKED WITH THERAPY. UP WITH GAIT BELT, WALKER, AND STB ASSIST. US BLE COMPLETED. SEE RESULTS. CTA ORDERED. O2 2LNC. DRESSING REAPPLIED BY WOUND CARE NURSE. TUBIGRIP TO LLE. IMPULSIVE. SETS THE BED ALARM OFF FREQUENTLY. CALL LIGHT IN REACH. PT REMINDED FREQUENTLY TO CALL PRIOR TO GETTING UP. FALL PRECAUTIONS IN PLACE.
[2021-01-18 19:00] VITALS: BP 94/56
--- NOTE | 2021-01-18 21:20 | NUR ---
AWAKENED FOR REASSESSMENT AND MEDICATION PASS. 02 NASAL CANNULA AT TWO LITERS REPLACED. PATIENT WASN'T WEARING THE OXYGEN. CALL LIGHT WITHIN REACH. SNACK PROVIDED.
--- NOTE | 2021-01-19 05:20 | NUR ---
RESTED ON/OFF. SITS UP ON SIDE OF THE BED AT TIMES. GAVE PAIN MEDICINE FOR COMPLAINT OF RIGHT SHOULDER PAIN WITH RELIEF. TAKEN BY WHEELCHAIR BY THE NURSING GENERAL MERCHANDISE SALESPERSON TO HAVE CTA DONE. RESULTS PENDING. METFORMIN PLACED ON HOLD DUE TO PATIENT HAVING HAD IV CONTRAST. STANDS AT BEDSIDE TO VOID PER URINAL. HOURLY ROUNDING IN PROGRESS.
[2021-01-19 08:24] VITALS: BP 106/60
[2021-01-19 16:58] LABS: BF RBC <1000 /mm3; TOTAL CELL COUNT 252 /mm3
[2021-01-19 17:03] LABS: CLARITY HAZY; TOTAL VOLUME 1860 ml
[2021-01-19 17:04] LABS: BF POLYS 10 %
[2021-01-19 17:05] LABS: BF LYMPHOCYTES 10 %; BF TISSUE 22 /100 WBC
[2021-01-19 18:40] LABS: ALBUMIN 2.8 g/dL (3.4-5.0); CALCIUM 8.4 mg/dL (8.5-10.1); CREATININE 1.1 mg/dL (0.6-1.3); MAGNESIUM 1.6 mg/dL (1.8-2.4); POTASSIUM 3.5 mmol/L (3.5-5.1); TOTAL BILIRUBIN 0.6 mg/dL (<0.1-1.0); TOTAL PROTEIN 8.7 g/dL (6.4-8.2)
--- NOTE | 2021-01-19 18:46 | NUR ---
PT UP WITH GAIT BELT AND WALKER , PT COMPLETED ALL THERAPY. PT IS ON 2L 02 AT 96%. PT HAD THORACENTESIS ON RIGHT SIDE FLUID OUT WAS 0. PT HAD CONSULT WITH DR RIOS WHO ORDERED A REPEAT THORACENTESIS FOR Saturday01-20-21. PT DID TAKE PAIN MED AFTER THORACENTESIS, DID RESOLVE PAIN. PT IS RESTING WITH CALL LIGHT IN REACH AND FALL PRECAUTIONS IN PLACE.
[2021-01-19 20:10] VITALS: BP 98/54
--- NOTE | 2021-01-19 22:42 | NUR ---
ASSUMED CARE AT 1920. PATIENT RESTING IN BED, BUT GET UP FREQUENTLY TO VOID OR CHANGE POSITIONS. VOIDS STANDING PER URINAL, YOKO URINE. TAKES PILLS WHOLE WIHT WATER. DRESSING TO RT POSTERIOR CHEST C/D/I. NO C/O PAIN. SPUTUM SPECIMEN SENT TO LAB AT CHANGE OF SHIFT. INSULIN GIVEN AT HS, SEE JUL. DRESSING TO RLE C/D/I, TUBIGRIP TO LLE C/D/I. HOURLY ROUNDS CONTINUE. CALL LITE IN REACH. BED ALARM ON.
--- NOTE | 2021-01-20 05:23 | NUR ---
SLEPT MUCH BETTER TONIGHT THAN IN PREVIOUS NIGHTS. SOME COUGHING NOTED, BUT SOUNDS LIKE LESS COUGHING TONIGHT. DID SIT UP ON SIDE OF THE BED FOR A WHILE, THEN RETURNED TO BED. PREFERS LYING ON RIGHT SIDE. DRESSING FROM THORACENTESIS C/D/I. HOURLY ROUNDS CONTINUE. CALL LITE IN REACH. BED ALARM ON.
[2021-01-20 08:00] VITALS: BP 102/55
[2021-01-20 10:08] LABS: CALCIUM 8.4 mg/dL (8.5-10.1); CREATININE 1.1 mg/dL (0.6-1.3); MAGNESIUM 1.7 mg/dL (1.8-2.4); POTASSIUM 3.5 mmol/L (3.5-5.1)
[2021-01-20 10:17] LABS: ABSOLUTE BASOPHILS 0.1 thou/uL (0.0-0.2); ABSOLUTE EOSINOPHILS 0.2 thou/uL (0.0-0.7); ABSOLUTE LYMPHOCYTES 0.7 thou/uL (0.8-5.3); ABSOLUTE MONOCYTES 0.6 thou/uL (0.0-1.2); ABSOLUTE NEUTROPHILS 3.8 thou/uL (1.6-8.1); BASOPHILS 1.4 %; EOSINOPHILS 3.2 %; HEMATOCRIT 30.7 % (42.0-52.0); HEMOGLOBIN 9.5 gm/dL (14.0-18.0); LYMPHOCYTES 12.8 %; MCH 23.7 pg (26.0-34.0); MCHC 30.8 g/dL (28.0-37.0); MCV 76.9 fL (80.0-100.0); MONOCYTES 10.9 %; MPV 7.2 fl. (7.2-11.1); NUCLEATED RBCS 0 /100WBC; PLATELET COUNT* 455 thou/uL (150-400); POLYS 71.7 %; RDW-CV 22.8 % (10.5-14.5); WBC 5.3 thou/uL (4.0-11.0)
--- NOTE | 2021-01-20 16:53 | NUR ---
WOUND NURSE: PATIENT SEEN FOR FOLLOW UP DRESSING AND COMPRESSION WRAP CHANGE ON RLE. WITHOUT IDENTIFIED CHANGE COMPARED TO PREVIOUS DRESSING CHANGE THIS WEEK. TUBIGRIP REMAINS IN USE ON LLE.
--- NOTE | 2021-01-20 18:09 | NUR ---
PT WORKED WITH PT, OT AND ST, TOLERATED WELL. PT ALSO HAD A SECOND THORACENTESIS DONE WITH 1300 ML REMOVED. PT IS NOW ON IV ABX AND WILL BE RECEIVING IV LASIX, IV MAGNESIUM AND ALBUMIN AFTER HIS 1800 ABX. FALL PRECAUTIONS AND HOURLY ROUNDING CONTINUE.
[2021-01-20 20:00] VITALS: BP 88/57
[2021-01-21 06:12] LABS: CALCIUM 8.1 mg/dL (8.5-10.1); CREATININE 1.1 mg/dL (0.6-1.3); MAGNESIUM 2.2 mg/dL (1.8-2.4); POTASSIUM 3.9 mmol/L (3.5-5.1)
[2021-01-21 07:39] VITALS: BP 85/53
[2021-01-21 09:27] LABS: ABSOLUTE BASOPHILS 0.1 thou/uL (0.0-0.2); ABSOLUTE EOSINOPHILS 0.3 thou/uL (0.0-0.7); ABSOLUTE LYMPHOCYTES 0.8 thou/uL (0.8-5.3); ABSOLUTE MONOCYTES 0.7 thou/uL (0.0-1.2); ABSOLUTE NEUTROPHILS 3.8 thou/uL (1.6-8.1); BASOPHILS 1.1 %; EOSINOPHILS 6.2 %; HEMATOCRIT 29.3 % (42.0-52.0); HEMOGLOBIN 9.1 gm/dL (14.0-18.0); LYMPHOCYTES 13.5 %; MCH 23.8 pg (26.0-34.0); MONOCYTES 11.6 %; MPV 7.4 fl. (7.2-11.1); NUCLEATED RBCS 0 /100WBC; PLATELET COUNT* 412 thou/uL (150-400); POLYS 67.6 %; RBC 3.81 mil/uL (4.50-6.00); RDW-CV 23.3 % (10.5-14.5); WBC 5.7 thou/uL (4.0-11.0)
[2021-01-21 10:06] VITALS: BP 112/69
--- NOTE | 2021-01-21 17:25 | NUR ---
PT UP WITH SUPERVISION. 1700 LASIX HELD FOR BP OF 93/[address] GUADALUPE'S ORDER. WILL GIVE MIDORINE ORDERED TO ASSIST WITH LOW BP. O2 2LNC. PT TO HAVE REPEAT CT SCAN ON SATURDAY. SON HERE TO VISIT. CALL LIGHT IN REACH. FALL PRECAUTIONS IN PLACE.
[2021-01-21 17:35] VITALS: BP 93/54
[2021-01-21 19:00] VITALS: BP 93/54
[2021-01-22 04:15] LABS: CALCIUM 8.3 mg/dL (8.5-10.1); CREATININE 1.1 mg/dL (0.6-1.3); POTASSIUM 4.2 mmol/L (3.5-5.1)
[2021-01-22 06:30] VITALS: BP 99/53
[2021-01-22 07:45] VITALS: BP 122/61
[2021-01-22 12:00] VITALS: BP 97/57
[2021-01-22 17:16] VITALS: BP 99/65
--- NOTE | 2021-01-22 18:03 | NUR ---
PT UP WITH WALKER, GAIT BELT, AND STB ASSIST. 1700 LASIX AND POTASSIUM HELD. BP 99/65. PT EXPRESSED FRUSTRATION OVER HIS FAMILY SITUATION. IS UPSET WITH HIS STEP DAUGHTER. LISTENED TO PT CONCERNS AND REASSURANCE GIVEN. SON HERE TO VISIT. CALL LIGHT IN REACH. FALL PRECAUTIONS IN PLACE.
[2021-01-22 20:00] VITALS: BP 92/53
[2021-01-23 04:14] LABS: HEMATOCRIT 30.7 % (42.0-52.0); HEMOGLOBIN 9.2 gm/dL (14.0-18.0); MCH 23.2 pg (26.0-34.0); MCHC 29.8 g/dL (28.0-37.0); MCV 77.9 fL (80.0-100.0); RBC 3.94 mil/uL (4.50-6.00); RDW-CV 22.6 % (10.5-14.5); WBC 5.7 thou/uL (4.0-11.0)
[2021-01-23 04:47] LABS: CALCIUM 8.5 mg/dL (8.5-10.1); MAGNESIUM 1.9 mg/dL (1.8-2.4); POTASSIUM 4.2 mmol/L (3.5-5.1)
[2021-01-23 07:26] VITALS: BP 101/59
[2021-01-23 09:41] VITALS: BP 101/57
[2021-01-23 11:16] VITALS: BP 101/57
[2021-01-23 13:08] LABS: BODY FLUID LDH 165 IU/L (())
[2021-01-23] MEDS ORDERED: MIDODRINE HCL 55 M1 PO (13:10)
--- NOTE | 2021-01-23 16:04 | NUR ---
WOUND NURSE: PATIENT SEEN FOR FOLLOW UP ASSESSMENT PERTAINING TO VASCULAR WOUND ON RLE. MEASURES 2.0 X 2.0 X 0.1 CM. CONTAINS 60% RED, GRANULATION TISSUE AND 40% CREAM COLORED FIRMLY ADHERENT FIBROUS MATERIAL. THERE IS A SMALL AMOUNT OF SEROUSANGUINOUS DRAINAGE. NO PERIWOUND REDNESS, WARMTH, OR INDURATION. EDEMA WELL CONTROLLED WITH USE OF COMPRESSION WRAP. PATIENT TO FOLLOW UP IN [facility] NEXT SATURDAY IF HE DISCHARGES THIS WEEK. PATIENT UNDERSTANDS AND AGREES TO THIS.
--- NOTE | 2021-01-23 16:07 | NUR ---
CM SPOKE TO THE PT TO DISUCUSS ANY QUESTIONS OR CONCERNS THAT HE MAY HAVE AND TO DISUCSS D/C PLANNING. PT INFORMS THAT HE HAD TALKED TO HIS DTR AND NOW WANTS TO D/C TO HIS HOME NOT HIS DTRS. PER TEAM PT WILL REQUIRE 24/7 SUPERVISION AT D/C HE LACKS INSIGHT. CM SPOKE TO THE PT'S DTR AND SHE CONFIRMS THAT THE PT AND HER HAD A DISAGREEMENT, AND HAD STATED THAT HE IS 'NOT COMING TOO SIRENA'. PT'S DTR EVA INFORMS THAT THE PT'S SON WHO IS A PHYSICIAN SHOULD BE CONTACTED TO ASSIST WITH D/C PLANNING. CM TO F/U WITH THE PT'S SON TO DISCUSS THIS. CM WILL REMAIN AVAIABLE TO ASSIST AND FOLLOW NEEDED.
--- NOTE | 2021-01-23 16:42 | NUR ---
PT WORKED WITH THERAPIES. UP WITH STB ASSIST. O2 2LNC. PSYCH CONSULT ORDERED FOR CAPACITY ASSESSMENT. PT IS EITHER VERY CONFUSED AT TIMES OR IS NOT BEING TRUTHFUL ABOUT HIS HOME/AFTER CARE SITUATION. REPORTS THAT HE NEEDS TO GO TO HIS WHO IS LIVING IN [place] WITH HIS STEPDAUGHTER. STEPDAUGHTER STATES THAT SHE LIVES IN [facility] AND THAT PT'S IS AT NOW LIVING WITH HER. CXR AND CT CHEST DONE TODAY. SEE RESULTS. DR RIOS STATES THAT PT IS NOT MEDICALLY CLEARED FOR DISCHARGE AND WILL NEED TO BE HERE UNTIL AT LEAST SATURDAY. NURSING TO NOTIFY DR RIOS WITH LOW BP NUMBERS. WANTS HAM GIVEN. FALL PRECAUTIONS IN PLACE. CALL LIGHT IN REACH.
[2021-01-23 17:14] VITALS: BP 123/69
--- NOTE | 2021-01-23 18:29 | NUR ---
PT'S SON REPORTS THAT THE PT'S IS WITH HER DAUGHTER , BRANDON. STATED THAT BRANDON IS LIVING IN [place] AND IS PLANNING TO MOVE TO [place]. TAMI WITH REHAB NOTIFIED OF INFORMATION.
[2021-01-23 19:00] VITALS: BP 92/54
[2021-01-24 04:53] LABS: HEMATOCRIT 30.2 % (42.0-52.0); HEMOGLOBIN 9.2 gm/dL (14.0-18.0); MCH 23.7 pg (26.0-34.0); MCHC 30.6 g/dL (28.0-37.0); MCV 77.5 fL (80.0-100.0); MPV 7.2 fl. (7.2-11.1); RBC 3.9 mil/uL (4.50-6.00); RDW-CV 22.1 % (10.5-14.5); WBC 5.5 thou/uL (4.0-11.0)
[2021-01-24 05:30] VITALS: BP 105/59
[2021-01-24 05:32] LABS: CALCIUM 8.6 mg/dL (8.5-10.1); CREATININE 1.1 mg/dL (0.6-1.3); POTASSIUM 4.1 mmol/L (3.5-5.1)
--- NOTE | 2021-01-24 06:37 | NUR ---
PT SLEPT OFF AND ON OVERNIGHT, STANDING AT BEDSIDE TO USE URINAL TO VOID. O2 2L NC. R WRIST IV SL, ABX GIVEN ORDERED. HS ACCUCHECK 147, SNACK GIVEN. AM LABS DRAWN. MINIMAL COUGH HEARD OVERNIGHT. UP WITH GB, WALKER TO BR, NO BM OVERNIGHT. PT AO X4, COOPERATIVE AND FORGETFUL AT TIMES THIS SHIFT. CALL LITE IN EASY REACH, BED ALARM ON FOR SAFETY.
[2021-01-24 09:11] VITALS: BP 100/69
[2021-01-24 11:22] VITALS: BP 100/69
--- NOTE | 2021-01-24 18:43 | NUR ---
PT UP WITH GAIT BELT AND WALKER. PT DID COMPLETE ALL THERAPY. PT DID COMPLAIN OF NOT BEING ABLE TO VOID. DID BLADDER SCAN SHOWED 391 OF URINE SPOKE TO AND DID STRIGHT CATH GOT [address] COLLINS ORDER FOR FLOMAX.[address] QUINTANILLA CAME UP AND ALSO HAD ORDER FOR CHEST X-RAY AND RT THORACENTESIS FOR IN THE AM WITH A CT SCAN TO FOLLOW AND LABS. PT IS RESTING AND HAS CALL LIGHT IN REACH AND FALL PRECAUIOTNS IN PLACE.
[2021-01-24 19:00] VITALS: BP 95/48
--- NOTE | 2021-01-24 21:15 | NUR ---
SITTING UP ON SIDE OF BED WATCHING TV. DRESSING ON RIGHT LOWER EXTREMITY AND TUBIGRIP ON LEFT LOWER EXTREMITY DRY/INTACT. URINAL AND CALL LIGHT WITHIN REACH. STANDS TO VOID CLEAR/YELLOW URINE PER URINAL.
[2021-01-25 04:56] LABS: PHOSPHORUS* 3.9 mg/dL (2.5-4.9)
[2021-01-25 05:02] LABS: ABSOLUTE BASOPHILS 0.1 thou/uL (0.0-0.2); ABSOLUTE EOSINOPHILS 0.3 thou/uL (0.0-0.7); ABSOLUTE LYMPHOCYTES 0.8 thou/uL (0.8-5.3); ABSOLUTE MONOCYTES 0.4 thou/uL (0.0-1.2); ABSOLUTE NEUTROPHILS 3.3 thou/uL (1.6-8.1); BASOPHILS 1.5 %; EOSINOPHILS 6.8 %; HEMATOCRIT 27.9 % (42.0-52.0); HEMOGLOBIN 8.9 gm/dL (14.0-18.0); LYMPHOCYTES 15.7 %; MCH 24.4 pg (26.0-34.0); MCHC 31.7 g/dL (28.0-37.0); MPV 7.1 fl. (7.2-11.1); NUCLEATED RBCS 0 /100WBC; PLATELET COUNT* 387 thou/uL (150-400); RBC 3.63 mil/uL (4.50-6.00); RDW-CV 22.1 % (10.5-14.5); WBC 4.9 thou/uL (4.0-11.0)
--- NOTE | 2021-01-25 05:37 | NUR ---
RESTED ON/OFF. SITS UP ON SIDE OF BED AT TIMES. PAIN MEDICINE GIVEN AT 0135 FOR COMPLAINT OF PAIN IN KNEES WITH RELIEF. HOURLY ROUNDING IN PROGRESS.
[2021-01-25 05:49] LABS: ALBUMIN 3.2 g/dL (3.4-5.0); CALCIUM 8.2 mg/dL (8.5-10.1); CREATININE 1.1 mg/dL (0.6-1.3); MAGNESIUM 1.8 mg/dL (1.8-2.4); TOTAL BILIRUBIN 0.6 mg/dL (<0.1-1.0); TOTAL PROTEIN 7.5 g/dL (6.4-8.2)
[2021-01-25 06:32] LABS: ANISOCYTOSIS 2+; HYPOCHROMASIA 2+
--- NOTE | 2021-01-25 07:10 | PATH ---
[address] [address] PATHOLOGY RPT PROCEDURE Name: VALORIE NAVA Room: [address] IN [facility]#: [id number] Admission: 01/10/21 Date of : 55 Discharge: Report #: [id number] Path Case #: [id number] Note [facility] Accession Number: [id number] TESTS RESULT FLAG UNITS REF RANGE LAB Clinician Provided Cytology Information No. of containers..01 Other (Miscellaneous) Source: RIGHT PLEURAL FLUID DIAGNOSIS: 02 RIGHT PLEURAL FLUID NEGATIVE FOR MALIGNANT CELLS. REACTIVE MESOTHELIAL CELLS AND MODERATE CHRONIC AND ACUTE INFLAMMATORY CELLS. THIS INTERPRETATION INCLUDES EVALUATION OF A CELL BLOCK. Signed out by: 02 Jose R Bejarano MD, Pathologist NPI- [id number] Performed by: 01 Lizette Puckett, Admissions Evaluator ([facility]) Gross description: 01 35ML, HAZY YELLOW, 1 TP 1 CB /LCS 01/23/2021 1719 Local FLAG LEGEND: L-Low Normal,H-High Normal,LL-Alert Low,HH-Alert High <-Panic Low,>-Panic High,A-Abnormal,AA-Critical Abnormal Performed at: [address] [place] [address] Jordan Crews MD, [address] [id number] Jose R Bejarano MD, Performed at: [address], [place], [place] [id number] MD Jordan Crews MD Phone: [phone]
[2021-01-25 07:40] VITALS: BP 103/54
[2021-01-25 09:23] LABS: INR 1.1; PROTIME 11.4 Seconds (9.20-11.50)
[2021-01-25 11:10] VITALS: BP 101/57
[2021-01-25 12:14] LABS: BF EOSINOPHILS 1 %; BF LYMPHOCYTES 81 %; BF POLYS 18 %; BF TISSUE 15 /100 WBC
[2021-01-25 12:15] LABS: SOURCE THORACENTESIS
[2021-01-25 12:16] LABS: BF RBC 656 /mm3; CLARITY CLEAR; TOTAL CELL COUNT 424 /mm3; TOTAL VOLUME 1500 ml
[2021-01-25] MEDS ORDERED: LEVOFLOXACIN750 MG PO (14:25)
[2021-01-25] MEDS ORDERED: ZYVOX600 MG PO (14:25)
[2021-01-25] MEDS ORDERED: LACTINEX CHEWA1 EACH PO (14:25)
--- NOTE | 2021-01-25 16:05 | NUR ---
WOUND NURSE: PATIENT SEEN BECAUSE HE IS SUPPOSED TO BE DISCHARGING TODAY OR TOMORROW. A RESULT, DRESSING AND COMPRESSION WRAP WAS CHANGED TODAY, THE WOUND MEASURED AND PHOTOGRAPHED. PATIENT WAS INSTRUCTED ON MEASURES TO PROMOTE HEALING AND PREVENT COMPLICATIONS, AND ON HIS APPOINTMENT IN THE WOUND CARE CENTER. PATIENT STATES HE UNDERSTANDS. EXPLAINED TO THE PATIENT THAT THE WRAP CANNOT REMAIN ON LONGER THAN 7 DAYS, HE AGAIN SAID HE UNDERSTOOD.
--- NOTE | 2021-01-25 17:06 | PATH ---
[address] [address] PATHOLOGY RPT PROCEDURE Name: VALORIE NAVA Room: [address] IN [facility]#: [id number] Admission: 01/10/21 Date of : 55 Discharge: Report #: [id number] Path Case #: [id number] Note [facility] Accession Number: [id number] TESTS RESULT FLAG UNITS REF RANGE LAB Clinician Provided Cytology Information No. of containers..01 Other (Miscellaneous) Source: PLEURAL FLUID DIAGNOSIS: 02 PLEURAL FLUID NEGATIVE FOR MALIGNANT CELLS. MESOTHELIAL CELLS AND MODERATE ACUTE AND CHRONIC INFLAMMATION. CELLULAR DEGENERATION IS PRESENT. THIS INTERPRETATION INCLUDES EVALUATION OF A CELL BLOCK. Signed out by: 02 Jose R Bejarano MD, Pathologist NPI- [id number] Performed by: 01 Tasha Ren, Building Cleaning Supervisor ([facility]) Gross description: 01 50ML, HAZY YELLOW, 1 TP 1 CB /LAURA 01/24/2021 1746 Local FLAG LEGEND: L-Low Normal,H-High Normal,LL-Alert Low,HH-Alert High <-Panic Low,>-Panic High,A-Abnormal,AA-Critical Abnormal Performed at: [address] [place] [address] Jordan Crews MD, [address] [place] [address] [address], [place] [address] Jose R Bejarano MD, Performed at: [address] [place] [address] [address], [place], [place] [id number] MD Jordan Crews MD Phone: [phone]
--- NOTE | 2021-01-25 18:33 | NUR ---
PATIENT HAS THORACENTESIS THIS AM, 1500ML FLUID REMOVED. VITALS STABLE CHARTED. DR. RIOS NOTIFIED OF ALL RESULTS. IV ABX INFUSED ORDERED. PATIENT ORDERS TO DISCHARGE TODAY, PER PATIENTS SON A FRIEND WILL BE PICKING PATIENT UP AND STAYING WITH PATIENT THIS EVENING INTO TOMORROW. MARTHA SAINI NOTIFIED FOR HOME HEALTH SET UP TOMORROW. DR. RIOS LEFT SCRIPT FOR ANTIBIOTICS. CAROLYN FROM WOUND CARE HERE TO SEE PATIENT AND REDRESS WOUND, PHOTO TAKEN PER PROTOCOL.
--- NOTE | 2021-01-25 19:48 | NUR ---
RECEIVED REPORT FROM OSWALDO TORRES. PT TO BED DISCHARGED TONIGHT. PT WAS TAKEN OUT BY W/C AND PICKED UP BY FRIEND. PT D/C WITH ALL BELONGINGS.
[2021-01-26 14:07] LABS: BODY FLUID PROTEIN 3.6 g/dL (())
--- NOTE | 2021-01-27 13:08 | PATH ---
[address] [address] PATHOLOGY RPT PROCEDURE Name: VALORIE NAVA Cruzito Room: [address]#: [id number] Admission: 01/10/21 Date of : 55 Discharge: 01/25/21 Report #: [id number] Path Case #: [id number] Note [facility] Accession Number: [id number] TESTS RESULT FLAG UNITS REF RANGE LAB Clinician Provided Cytology Information No. of containers..01 Other (Miscellaneous) Source: RUGHT PLEURAL FLUID DIAGNOSIS: 02 RUGHT PLEURAL FLUID NEGATIVE FOR MALIGNANT CELLS. REACTIVE MESOTHELIAL CELLS AND FEW, PREDOMINANTLY CHRONIC INFLAMMATORY CELLS. Signed out by: 02 Jose R Bejarano MD, Pathologist NPI- [id number] Performed by: Tasha Ren, Route Specialist ([facility]) Gross description: 01 80ML, HAXY YELLOW, 1 TP /LCS 01/26/2021 3268 Local FLAG LEGEND: L-Low Normal,H-High Normal,LL-Alert Low,HH-Alert High <-Panic Low,>-Panic High,A-Abnormal,AA-Critical Abnormal Performed at: [address] [place] [address] Jordan Crews MD, [address] [place] [address], [place] [address] Jose R Bejarano MD, Performed at: [address], [place], [place] [id number] MD Jordan Crews MD Phone: [phone]
--- NOTE | 2021-01-27 15:46 | NUR ---
LATE ENTRY: PT D/C'D HOME WITH FAMILY PROVIDING INTERMITENT SUPPORT. PT'S SON PLANS TO ARRANGE [facility] WELL. HH ARRANGED WITH [facility] PER PT AND SONS REQUEST HE COULD NOT RECALL HIS PREVIOUS HH. CM WILL REMAIN AVAILABLE TO ASSIST AND FOLLOW NEEDED. [facility] PHONE: [phone]
== END 2021-01-25 19:47 | disposition home or self-care (01) | DRG 70 ==
LOC: M.REH 14:55
PROVIDERS: Family Medicine; Internal Medicine; Internal Medicine Critical Care Medicine; ADMIT Physical Medicine & Rehabilitation; ATTEND Physical Medicine & Rehabilitation
PROC: 0W993ZZ Drainage of Right Pleural Cavity, Percutaneous Approach (ICD-10-PCS; principal; 2021-01-19)
PROC: 0W993ZZ Drainage of Right Pleural Cavity, Percutaneous Approach (ICD-10-PCS; 2021-01-20)
PROC: 0W993ZZ Drainage of Right Pleural Cavity, Percutaneous Approach (ICD-10-PCS; 2021-01-25)
DX: G93.41 Metabolic encephalopathy (principal); J96.01 Acute respiratory failure with hypoxia; J18.9 Pneumonia, unspecified organism; I50.33 Acute on chronic diastolic (congestive) heart failure; J96.02 Acute respiratory failure with hypercapnia; J91.8 Pleural effusion in other conditions classified elsewhere; E87.0 Hyperosmolality and hypernatremia; L03.90 Cellulitis, unspecified; E46 Unspecified protein-calorie malnutrition; R53.81 Other malaise; E83.51 Hypocalcemia; B95.61 Methicillin susceptible Staphylococcus aureus infection as the cause of diseases classified elsewhere; E66.9 Obesity, unspecified; E87.8 Other disorders of electrolyte and fluid balance, not elsewhere classified; I48.91 Unspecified atrial fibrillation; F17.210 Nicotine dependence, cigarettes, uncomplicated; E78.00 Pure hypercholesterolemia, unspecified; R33.9 Retention of urine, unspecified; I25.10 Atherosclerotic heart disease of native coronary artery without angina pectoris; D64.9 Anemia, unspecified; I11.0 Hypertensive heart disease with heart failure; E11.9 Type 2 diabetes mellitus without complications; E78.5 Hyperlipidemia, unspecified; Z68.38 Body mass index [BMI] 38.0-38.9, adult; Z95.1 Presence of aortocoronary bypass graft; Z88.6 Allergy status to analgesic agent; Z88.8 Allergy status to other drugs, medicaments and biological substances; Z79.899 Other long term (current) drug therapy

== ENCOUNTER → 2021-01-30 | Outpatient (CLI) | payer MEDICARE ==
[~2021-01-30] MED LIST changes: +LACTINEX CHEWA1 EACH PO; +LEVOFLOXACIN750 MG PO; +MIDODRINE HCL 55 M1 PO; +ZYVOX600 MG PO
== END ==
LOC: M.WC 08:45
PROVIDERS: ATTEND Surgery
DX: E11.622 Type 2 diabetes mellitus with other skin ulcer (principal); I83.012 Varicose veins of right lower extremity with ulcer of calf; L97.212 Non-pressure chronic ulcer of right calf with fat layer exposed; I83.022 Varicose veins of left lower extremity with ulcer of calf; L97.222 Non-pressure chronic ulcer of left calf with fat layer exposed; L89.323 Pressure ulcer of left buttock, stage 3; L89.313 Pressure ulcer of right buttock, stage 3; L98.411 Non-pressure chronic ulcer of buttock limited to breakdown of skin; L89.893 Pressure ulcer of other site, stage 3; L97.121 Non-pressure chronic ulcer of left thigh limited to breakdown of skin; E11.36 Type 2 diabetes mellitus with diabetic cataract; H26.9 Unspecified cataract; E11.40 Type 2 diabetes mellitus with diabetic neuropathy, unspecified; E78.5 Hyperlipidemia, unspecified; G47.30 Sleep apnea, unspecified; I11.0 Hypertensive heart disease with heart failure; I50.9 Heart failure, unspecified; I89.0 Lymphedema, not elsewhere classified; I25.10 Atherosclerotic heart disease of native coronary artery without angina pectoris; I25.2 Old myocardial infarction; J44.9 Chronic obstructive pulmonary disease, unspecified; K21.9 Gastro-esophageal reflux disease without esophagitis; F17.200 Nicotine dependence, unspecified, uncomplicated; F41.9 Anxiety disorder, unspecified; Z79.84 Long term (current) use of oral hypoglycemic drugs

== ENCOUNTER → 2021-02-14 | Outpatient (CLI) | payer MEDICARE | LOC: M.WC 08:39 | PROVIDERS: ATTEND Emergency Medicine Undersea and Hyperbaric Medicine | DX: E11.622 Type 2 diabetes mellitus with other skin ulcer (principal); I83.012 Varicose veins of right lower extremity with ulcer of calf; L97.212 Non-pressure chronic ulcer of right calf with fat layer exposed; I83.022 Varicose veins of left lower extremity with ulcer of calf; L97.222 Non-pressure chronic ulcer of left calf with fat layer exposed; I83.013 Varicose veins of right lower extremity with ulcer of ankle; L97.311 Non-pressure chronic ulcer of right ankle limited to breakdown of skin; L89.323 Pressure ulcer of left buttock, stage 3; L89.313 Pressure ulcer of right buttock, stage 3; L98.411 Non-pressure chronic ulcer of buttock limited to breakdown of skin; L89.893 Pressure ulcer of other site, stage 3; L97.121 Non-pressure chronic ulcer of left thigh limited to breakdown of skin; E11.36 Type 2 diabetes mellitus with diabetic cataract; H26.9 Unspecified cataract; E11.40 Type 2 diabetes mellitus with diabetic neuropathy, unspecified; E78.5 Hyperlipidemia, unspecified; G47.30 Sleep apnea, unspecified; I11.0 Hypertensive heart disease with heart failure; I50.9 Heart failure, unspecified; I89.0 Lymphedema, not elsewhere classified; I25.10 Atherosclerotic heart disease of native coronary artery without angina pectoris; I25.2 Old myocardial infarction; J44.9 Chronic obstructive pulmonary disease, unspecified; K21.9 Gastro-esophageal reflux disease without esophagitis; F17.200 Nicotine dependence, unspecified, uncomplicated; F41.9 Anxiety disorder, unspecified; Z79.84 Long term (current) use of oral hypoglycemic drugs ==